=== PATIENT | male | born 1990 | race Caucasian/White ===

== ENCOUNTER 2016-06-30 13:26 | Inpatient (IN) ==
--- NOTE | 2016-06-30 13:54 | Emergency Department Note ---
Disposition Clinical Impression: Homicidal ideation Disposition: Admitted As Inpatient Condition: Good Psych HPI - General Chief Complaint: ED Psychiatric Symptoms Stated Complaint: SI/HI Time Seen by Provider: 06/30/16 13:46 Source: patient Mode of arrival: EMS Limitations: no limitations Nursing Notes Reviewed: Yes Vital Signs Reviewed: Yes - History of Present Illness HPI Narrative: 25-year-old male history of PTSD treated with Celexa who presents to the ER with a chief complaint of homicidal ideation. Patient reports that he was sitting at work today and was thinking about killing his uncle and grandmother because he believes that they had something to do with his mother's . He reports that she overdosed on Tylenol roughly 2 years ago. He states that he thought about driving towards anywhere and had even figured out how to dispose of the bodies. He reports similar ideas in the past but has never tried act on it. He denies suicidal ideation. He reports he feels homicidal to anyone that cuts them off in traffic or does not use their turn signal. Patient reports instead of going to find them today he went to the crisis center and was referred here. He denies any ingestion or attempts to harm himself. Pt complaint: other (Homicidal ideation) Onset (ago): hour(s) Duration: constant History of similar episodes: Yes Improves with: none Worsens with: none Alleged intoxication: No Associated Psychiatric Symptoms: homicidal ideation, racing thoughts Associated symptoms: Reports: denies other symptoms Traumatic symptoms: denies traumatic injury Treatments prior to arrival: none Self harm or harm to others: has plan, admits thoughts of harming others - Related Data Home Medications Medication Instructions Recorded Confirmed Biotin 1 mg PO DAILY 06/30/16 06/30/16 Citalopram Hydrobromide 40 mg PO DAILY 06/30/16 06/30/16 [Citalopram HBr] Dicyclomine [Bentyl] 20 mg PO QID 06/30/16 06/30/16 Prazosin HCl [Minipress] 2 mg PO HS 06/30/16 06/30/16 Allergies Allergy/AdvReac Type Severity Reaction Status Date / Time No Known Allergies Allergy Verified 06/30/16 13:30 All systems ED: reviewed and negative except as stated. Constitutional: Denies: fever Cardiovascular: Reports: chest pain Respiratory: Denies: dyspnea Gastrointestinal: Denies: abdominal pain, nausea, vomiting Psychiatric: Reports: homicidal thoughts. Denies: suicidal thoughts, auditory hallucinations, visual hallucinations Past Medical History - Past Medical History Attestation: Yes The following information was validated with the patient. Source: patient Medical history: Reports: other Surgical history: Reports: non-contributory Psychiatric history: Reports: panic disorder, PTSD - Social History Smoking Status: Never smoker Smokeless Tobacco Status: No Alcohol use: Reports: none Drug use: Reports: none Physical Exam - General Limitations: no limitations General appearance: alert, in no apparent distress - Head Head exam: atraumatic, normocephalic, normal inspection - Eye Eye exam: Present: normal appearance, EOMI - ENT ENT exam: normal exam - Neck Neck exam: Present: normal inspection - Chest Chest inspection: Present: normal inspection, symmetric chest wall rise - Respiratory Respiratory exam: Present: normal lung sounds bilaterally - Cardiovascular Cardiovascular exam: Present: regular rate, normal rhythm, normal heart sounds - Abdominal Exam Abdominal exam: Present: soft, Non-Tender. Absent: tenderness - Extremities Exam Extremities exam: Present: normal inspection, full ROM - Expanded Upper Extremity Exam Shoulder exam: Present: normal inspection, full ROM Arm exam: Present: normal inspection, full ROM Elbow exam: Present: normal inspection, full ROM Forearm/Wrist exam: Present: normal inspection, full ROM Hand exam: Present: normal inspection, full ROM - Expanded Lower Extremity Exam Hip/Pelvis exam: Present: normal inspection, full ROM Upper leg exam: Present: normal inspection, full ROM Knee exam: Present: normal inspection, full ROM Lower leg exam: Present: normal inspection, full ROM Ankle exam: Present: normal inspection, full ROM Foot/toe exam: Present: normal inspection, full ROM - Neurological Exam Neurological exam: Present: alert - Psychiatric Psychiatric exam: Present: normal affect, normal mood - Skin Skin exam: Present: warm, dry, intact, normal color Course Course Narrative: Patient seen and examined. Vital signs reviewed. He was pink slipped by the crisis center today. We will get labs for medical clearance. Vital Signs Temperature 97.5 F L 06/30/16 13:29 Pulse Rate 65 06/30/16 13:29 Respiratory Rate 18 06/30/16 13:29 Blood Pressure 136/88 06/30/16 13:29 O2 Sat by Pulse Oximetry 97 06/30/16 13:29 Temperature 97.4 F L 07/02/16 08:56 Pulse Rate 91 07/02/16 08:56 Respiratory Rate 12 07/02/16 08:56 Blood Pressure 125/81 07/02/16 08:56 O2 Sat by Pulse Oximetry 97 06/30/16 13:29 Oxygen Delivery Oxygen Delivery Room Air Psych - MDM Narrative Medical decision making narrative: 25-year-old male presents to the ER due to homicidal ideation. He reports he has a plan to kill his uncle and grandmother. He denies any suicidal ideation. He denies any auditory or visual hallucinations. Patient was accepted to the psychiatric service for further management. - Lab Data Result diagrams: 06/30/16 14:18 06/30/16 14:18 Lab Results 06/30/16 06/30/16 06/30/16 Range/Units 13:41 13:41 14:18 WBC 9.3 (4.3-11.1) K/mcL RBC 5.27 (4.19-5.50) M/mcL Hgb 15.9 (12.9-16.9) g/dL Hct 45.5 (37.5-50.1) % MCV 86.3 (83.0-100.0) fL MCH 30.2 (28.0-33.3) pg MCHC 34.9 (31.6-35.5) g/dL RDW 11.9 (11.5-14.5) % Plt Count 355 (140-400) K/mcL MPV 8.6 L (9.4-12.4) fL Immature Gran % 0.9 (0-4) % Seg Neutrophils % 69.0 % Lymphocytes % 21.1 % Monocytes % 7.0 % Eosinophils % 1.5 % Basophils % 0.5 % Neutrophils # 6.4 (1.6-8.9) K/mcL Lymphocytes # 2.0 (0.6-4.6) K/mcL Monocytes # 0.7 (0.0-1.3) K/mcL Eosinophils # 0.1 (0.0-0.6) K/mcL Basophils # 0.1 (0.0-0.2) K/mcL Immature Plt Fraction 1.6 (1.1-6.1) % Sodium (136-145) mEq/L Potassium (3.5-4.5) mEq/L Chloride (98-109) mEq/L Carbon Dioxide (19-29) mEq/L BUN (8-26) mg/dL Creatinine (0.72-1.25) mg/dL Est GFR ( Amer) (> 60) Est GFR (Non-Af Amer) (> 60) BUN/Creatinine Ratio (6-26) Glucose (70-99) mg/dL Calculated Osmolality (280-300) Calcium (8.6-10.8) mg/dL TSH (0.350-4.840) mcIU/mL Urine Color Yellow (Yellow) Urine Clarity Clear (Clear) Urine pH 7.5 (5.0-8.0) pH Units Ur Specific [place] 1.017 (1.010-1.025) Urine Protein Negative (Neg-Trace) mg/dL Urine Glucose (UA) Normal (Normal) mg/dL Urine Ketones Negative (Negative) mg/dL Urine Blood Negative (Negative) Urine Nitrite Negative (Negative) Urine Bilirubin Negative (Negative) Urine Urobilinogen Normal (Normal) mg/dL Ur Leukocyte Esterase Negative (Negative) Urine Microscopic RBC 0-3 (0-3) per hpf Ur Squamous Epith Cells Few (None-Few) per lpf Urine Bacteria None Seen (None-Few) per hpf Hyaline Casts None Seen (None-Few) per lpf Salicylates (15-30) mg/dL Urine Opiates Screen Negative (Lfzjyh=469) ng/mL Acetaminophen (10-30) mcg/mL Ur Barbiturates Screen Negative (Svobqo=740) ng/mL Ur Phencyclidine Scrn Negative (Cutoff=25) ng/mL Ur Amphetamines Screen Negative (Lgbjuj=8817) ng/mL U Benzodiazepines Scrn Negative (Yzqzrs=782) ng/mL Urine Cocaine Screen Negative (Cutoff= 300) ng/mL U Marijuana (THC) Screen Negative (Cutoff = 50) ng/mL Ethyl Alcohol (0-10) mg/dL 06/30/16 Range/Units 14:18 WBC (4.3-11.1) K/mcL RBC (4.19-5.50) M/mcL Hgb (12.9-16.9) g/dL Hct (37.5-50.1) % MCV (83.0-100.0) fL MCH (28.0-33.3) pg MCHC (31.6-35.5) g/dL RDW (11.5-14.5) % Plt Count (140-400) K/mcL MPV (9.4-12.4) fL Immature Gran % (0-4) % Seg Neutrophils % % Lymphocytes % % Monocytes % % Eosinophils % % Basophils % % Neutrophils # (1.6-8.9) K/mcL Lymphocytes # (0.6-4.6) K/mcL Monocytes # (0.0-1.3) K/mcL Eosinophils # (0.0-0.6) K/mcL Basophils # (0.0-0.2) K/mcL Immature Plt Fraction (1.1-6.1) % Sodium 140 (136-145) mEq/L Potassium 3.9 (3.5-4.5) mEq/L Chloride 102 (98-109) mEq/L Carbon Dioxide 27 (19-29) mEq/L BUN 12 (8-26) mg/dL Creatinine 1.02 (0.72-1.25) mg/dL Est GFR ( Amer) > 60 (> 60) Est GFR (Non-Af Amer) > 60 (> 60) BUN/Creatinine Ratio 12 (6-26) Glucose 110 H (70-99) mg/dL Calculated Osmolality 290 (280-300) Calcium 10.2 (8.6-10.8) mg/dL TSH 1.253 (0.350-4.840) mcIU/mL Urine Color (Yellow) Urine Clarity (Clear) Urine pH (5.0-8.0) pH Units Ur Specific [place] (1.010-1.025) Urine Protein (Neg-Trace) mg/dL Urine Glucose (UA) (Normal) mg/dL Urine Ketones (Negative) mg/dL Urine Blood (Negative) Urine Nitrite (Negative) Urine Bilirubin (Negative) Urine Urobilinogen (Normal) mg/dL Ur Leukocyte Esterase (Negative) Urine Microscopic RBC (0-3) per hpf Ur Squamous Epith Cells (None-Few) per lpf Urine Bacteria (None-Few) per hpf Hyaline Casts (None-Few) per lpf Salicylates < 5.0 L (15-30) mg/dL Urine Opiates Screen (Dggjda=530) ng/mL Acetaminophen 4.0 L (10-30) mcg/mL Ur Barbiturates Screen (Npcemj=305) ng/mL Ur Phencyclidine Scrn (Cutoff=25) ng/mL Ur Amphetamines Screen (Xsfqma=1328) ng/mL U Benzodiazepines Scrn (Zyqwtb=520) ng/mL Urine Cocaine Screen (Cutoff= 300) ng/mL U Marijuana (THC) Screen (Cutoff = 50) ng/mL Ethyl Alcohol < 10 (0-10) mg/dL - EKG Data EKG attestation: Yes I reviewed and interpreted this EKG. EKG results narrative: EKG demonstrates normal sinus rhythm with a rate of 69 bpm. Normal axis. CO interval 134 QRS duration [address] elevations or depressions. No acute ischemic findings. Psychiatric Medical Clearance - Medical Clearance Checklist Medical History: No Social History Section defined Current Vitals: Last Vital Signs Temp 97.4 F L 07/02/16 08:56 Pulse 91 07/02/16 08:56 Resp 12 07/02/16 08:56 BP 125/81 07/02/16 08:56 Pulse Ox 97 06/30/16 13:29 Abnormal Labs: Abnormal lab results MPV 8.6 fL (9.4-12.4) L 06/30/16 14:18 Glucose 110 mg/dL (70-99) H 06/30/16 14:18 Salicylates < 5.0 mg/dL (15-30) L 06/30/16 14:18 Acetaminophen 4.0 mcg/mL (10-30) L 06/30/16 14:18 Attestation Statement - Attestation Attestation: I personally interviewed and examined this patient and my medical decision- making was reviewed with the ED Resident Physician, Dr. Lauren. I agree with the documented findings, disposition and treatment plan as described except to the extent set forth below. Pt is a 25 yo wm, hx PTSD and SI, who presents with HI. Pt brought by family member to ED. Pt with plan to kill family members. No physical complaints. Agree with PE findings. Pt medically cleared for psych eval. Pt evaluated by 1A , and admitted for further psych eval/tx.
[2016-06-30 14:09] LABS: Bilirubin,Urine Negative (Negative); Blood,Urine Negative (Negative); Color,Urine Yellow (Yellow); Glucose,Urine (UA) Normal (Normal); Ketones,Urine Negative (Negative); Leukocyte Esterase,Urine Negative (Negative); Nitrite,Urine Negative (Negative); PH,Urine 7.5 pH Units (5.0-8.0); Protein,Urine Negative (Neg-Trace); Specific Gravity,Urine 1.017 (1.010-1.025); Urobilinogen,Urine Normal (Normal)
[2016-06-30 14:13] LABS: Bacteria,Urine None Seen per hpf (None-Few); Hyaline Casts,Urine None Seen per lpf (None-Few); RBC,Urine 0-3 per hpf (0-3); Squamous Epithelial Cell,Urine Few per lpf (None-Few)
[2016-06-30 14:14] LABS: Clarity,Urine Clear (Clear)
[2016-06-30 14:25] LABS: Basophils # 0.1 K/mcL (0.0-0.2); Basophils % 0.5 %; Eosinophils # 0.1 K/mcL (0.0-0.6); Eosinophils % 1.5 %; Hematocrit 45.5 % (37.5-50.1); Hemoglobin 15.9 g/dL (12.9-16.9); Immature Granulocytes % 0.9 % (0-4); Immature Platelets 1.6 % (1.1-6.1); Lymphocytes % 21.1 %; Mean Corpuscular HGB Conc 34.9 g/dL (31.6-35.5); Mean Corpuscular Hemoglobin 30.2 pg (28.0-33.3); Mean Corpuscular Volume 86.3 fL (83.0-100.0); Mean Platelet Volume 8.6 fL (9.4-12.4); Monocytes # 0.7 K/mcL (0.0-1.3); Neutrophils # 6.4 K/mcL (1.6-8.9); Platelet Count 355 K/mcL (140-400); Red Blood Count 5.27 M/mcL (4.19-5.50); Red Cell Distribution Width 11.9 % (11.5-14.5)
[2016-06-30 14:42] LABS: BUN/Creatinine Ratio 12 (6-26); Blood Urea Nitrogen 12 mg/dL (8-26); Calcium 10.2 mg/dL (8.6-10.8); Carbon Dioxide 27 mEq/L (19-29); Chloride 102 mEq/L (98-109); Glucose 110 mg/dL (70-99); Osmolality,Calculated 290 (280-300); Potassium 3.9 mEq/L (3.5-4.5); Sodium 140 mEq/L (136-145); eGFR For African Americans > 60 (> 60); eGFR For Non-African Americans > 60 (> 60)
[2016-06-30 14:44] LABS: Ethanol < 10 mg/dL (0-10); Salicylate < 5.0 mg/dL (15-30)
[2016-06-30 14:53] LABS: Amphetamine Screen,Urine Negative ng/mL (Cutoff=1000); Barbiturate Screen,Urine Negative ng/mL (Cutoff=200); Benzodiazepines Screen,Urine Negative ng/mL (Cutoff=200); Cannabinoid Screen,Urine Negative ng/mL (Cutoff = 50); Cocaine Screen,Urine Negative ng/mL (Cutoff= 300); Opiate Screen,Urine Negative ng/mL (Cutoff=300); Phencyclidine Screen,Urine Negative ng/mL (Cutoff=25)
[2016-06-30] MEDS ORDERED: traZODone 50 MG TABLET PO PRN (16:48)
[2016-06-30] MEDS ORDERED: *HR* LORazepam 2 MG/ML VIAL IM PRN (16:48)
[2016-06-30] MEDS ORDERED: MOM Conc 10 ML UD.LIQ PO PRN (16:48)
[2016-06-30] MEDS ORDERED: hydrOXYzine pamoate 25 MG CAPSULE PO PRN (16:48)
[2016-06-30] MEDS ORDERED: Acetaminophen 325 MG TABLET PO PRN (16:48)
[2016-06-30] MEDS ORDERED: Mag Hydrox/Al Hydrox/Simeth 30 ML UDC PO PRN (16:48)
[2016-06-30] MEDS ORDERED: *HR* LORazepam 1 MG TABLET PO PRN (16:48)
[2016-06-30] MEDS ORDERED: Haloperidol Lactate 5 MG/ML VIAL IM PRN (16:48)
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
[2016-07-01] MEDS: ARIPiprazole 10 MG TABLET PO SCH (11:34)
[2016-07-01 12:58] LABS: Thyroid Stimulating Hormone 1.253 mcIU/mL (0.350-4.840)
[2016-07-02] MEDS: ARIPiprazole 10 MG TABLET PO SCH (08:35)
--- NOTE | 2016-07-02 13:18 | Psychiatry Progress Note ---
Date of Encounter: 07/02/16 Time of Encounter: 13:00 Subjective Interval history: Patient is seen for follow-up. Staff report he is compliant with his medication and denied any side effects and did not endorse any suicidal or homicidal ideation. He reported having mid-insomnia but overall he had adequate sleep time. I had long discussion with patient regarding the medication and benefits and side effects and at this time he denies any side effects. 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 We will continue to monitor his response to treatment. Review of Systems Psychiatric: Reports: depression, abnormal sleep pattern, homicidal ideation, auditory hallucinations, visual hallucinations, irritability Objective: Exam Patient orientation: Yes Person, Yes Time, Yes Place Level of alertness: Alert Patient appearance: Appropriate, Well Groomed, Average Behavior: calm, cooperative, impulsive, dramatic Psychomotor activity: Normal Eye contact: Maintains Eye Contact Mood description: Euthymic/stable, Labile Affect description: congruent with mood, labile Speech pattern: Normal rate, Normal rhythm, Normal tone Speech volume: Normal Thought process: Linear, Goal Oriented Thought content: No Suicidal ideation, No Homicidal ideation, No Overt delusions , Yes Preoccupation, Yes Obsessive thoughts Perceptual disturbances: No Auditory hallucinations, Yes Visual hallucinations Judgment: Limited Insight: Partial Results - Vital Signs Vital Signs: Temp Pulse Resp BP Pulse Ox 97.4 F L 91 12 125/81 97 07/02/16 08:56 07/02/16 08:56 07/02/16 08:56 07/02/16 08:56 06/30/16 13:29 Assessment and Plan (1) Homicidal ideation Current visit: Yes Status: Acute Plan: Continue hospitalization, Close observation, Suicide Precautions per unit protocol, Encourage participation in unit milieu, Group Therapy, Monitor sleep, Monitor appetite Risks, benefits, side effects, alternatives discussed w/pt: Yes Patient agreeable to treatment: Yes (2) Bipolar disorder with psychotic features Current visit: Yes Status: Acute Plan: Continue hospitalization, Close observation, Suicide Precautions per unit protocol, Encourage participation in unit milieu, Group Therapy, Monitor sleep, Monitor appetite Risks, benefits, side effects, alternatives discussed w/pt: Yes Patient agreeable to treatment: Yes Consult Discharge Plan - Plan Referrals: Alana Zepeda, [facility] [Primary Care Provider] -
--- NOTE | 2016-07-03 08:51 | Electrocardiograph Report ---
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
[2016-07-03] MEDS: ARIPiprazole 10 MG TABLET PO SCH (08:53)
--- NOTE | 2016-07-03 17:59 | Psychiatry Progress Note ---
Date of Encounter: 07/03/16 Time of Encounter: 17:35 Subjective Interval history: Pt reports that he still has fragmented sleep. He is feeling better but feels Celexa is losing its effect for anxiety. He describes his diagnosis has changed to Bipolar d/o I whic is what his father had. Review of Systems Psychiatric: Reports: depression, abnormal sleep pattern, homicidal ideation, auditory hallucinations, visual hallucinations, irritability Objective: Exam Patient orientation: Yes Person, Yes Time, Yes Place Level of alertness: Alert Patient appearance: Appropriate, Well Groomed, Average Behavior: calm, cooperative, impulsive, dramatic Psychomotor activity: Normal Eye contact: Maintains Eye Contact Mood description: Euthymic/stable, Labile Affect description: congruent with mood, labile Speech pattern: Normal rate, Normal rhythm, Normal tone Speech volume: Normal Thought process: Linear, Goal Oriented Thought content: No Suicidal ideation, No Homicidal ideation, No Overt delusions , Yes Preoccupation, Yes Obsessive thoughts Perceptual disturbances: No Auditory hallucinations, Yes Visual hallucinations Judgment: Limited Insight: Partial Results - Vital Signs Vital Signs: Temp Pulse Resp BP Pulse Ox 97.7 F 84 16 124/79 97 07/03/16 09:00 07/03/16 09:00 07/03/16 09:00 07/03/16 09:00 06/30/16 13:29 Assessment and Plan (1) Bipolar disorder with psychotic features Current visit: Yes Status: Acute Plan: Continue hospitalization, Close observation, Suicide Precautions per unit protocol, Encourage participation in unit milieu, Group Therapy, Monitor sleep, Monitor appetite Risks, benefits, side effects, alternatives discussed w/pt: Yes Patient agreeable to treatment: Yes (2) Homicidal ideation Current visit: Yes Status: Acute Plan: Continue hospitalization, Close observation, Suicide Precautions per unit protocol, Encourage participation in unit milieu, Group Therapy, Monitor sleep, Monitor appetite Risks, benefits, side effects, alternatives discussed w/pt: Yes Patient agreeable to treatment: Yes Consult Discharge Plan - Plan Referrals: [facility] [Outside] - 07/07/16 6:00 pm (The above appointment is with Akiko Negron.) [facility] [Outside] - 09/14/16 2:00 pm (The above appointment is with Meagan Lugo, psychatric prescriber. Please arrive 15 minutes early to complete paperwork. Please bring your insurance card, photo ID and medications in their original bottles. If you do not have insurance, bring proof of income to apply for the sliding fee scale. If you are unable to keep this appointment, 24 hour business notice of cancellation is expected. ) Alana Zepeda CNP [Advanced Practice Nurse] - 07/10/16 1:45 pm (The above apopintment is with Alana Zepeda.)
[2016-07-03] MEDS: OXcarbazepine 150 MG TABLET PO SCH (21:36)
[2016-07-04] MEDS: ARIPiprazole 10 MG TABLET PO SCH (08:39)
[2016-07-04] MEDS: OXcarbazepine 150 MG TABLET PO SCH (08:39)
[2016-07-04 10:43] VITALS: BP 119/76
--- NOTE | 2016-07-04 15:28 | Discharge Summary ---
Date of Encounter: 07/04/16 Time of Encounter: 14:40 Diagnosis - Discharge Diagnosis (1) Bipolar disorder with psychotic features Status: Acute (2) Homicidal ideation Status: Acute Medications - Discharge Medications Biotin 1 mg PO DAILY 06/30/16 [History] Citalopram Hydrobromide [Citalopram HBr] 40 mg PO DAILY 06/30/16 [History] Dicyclomine [Bentyl] 20 mg PO QID 06/30/16 [History] Prazosin HCl [Minipress] 2 mg PO HS 06/30/16 [History] Allergies No Known Allergies Allergy (Verified 06/30/16 13:30) Provider Date of admission: 06/30/16 16:35 Primary care physician: PCP NO Discharging clinician: Jose Alberto Arzola Assessment and Plan - Patient/Caregiver Discharge Instructions Activity: resume usual activities as tolerated Diet: regular diet - Follow up Plan Follow up with: [facility] [Outside] - 07/07/16 6:00 pm (The above appointment is with Akiko Negron.) [facility] [place] [Outside] - 09/14/16 2:00 pm (The above appointment is with Meagan Lugo, psychatric prescriber. Please arrive 15 minutes early to complete paperwork. Please bring your insurance card, photo ID and medications in their original bottles. If you do not have insurance, bring proof of income to apply for the sliding fee scale. If you are unable to keep this appointment, 24 hour business notice of cancellation is expected. ) Alana Zepeda, WASTE DUSTER [Advanced Practice Nurse] - 07/10/16 1:45 pm (The above apopintment is with Alana Zepeda.) Disposition: Home, Self-Care Hospital Course Hospital course: Mr. Moralez is a 25 year old male with h/o PTSD and depression who had become acutely depressed and felt that his grandmother and uncle were against him. He developed an elaborate plan to kill them both and then call the police and turn himself in. Instead he decided to seek help and was hospitalized. Once in the hospitalized pt was very cooperative and had keep interest in learning about his new diagnosis which is Bipolar d/o with psychosis. His father struggled with the same disorder all his life. Pt reponded well to addition of Abilify. Celexa was continued. Given his residual symtoms surinder PTSD from childhood trauma Trileptal was also added at 300 mg bid which may need further dose increase. He had voiced dwindling returns from Celexa and would like to d/c it after Trileptal is fully titrated. Pt's paranoia and mood iimproved significantly during his 4 days stay in the hospital and he participated well in the unit activities and individual counseling.Pt is cleared to return to his work and home. Time spent discussing smoking cessation with patient: 3 to 10 minutes (Pt is not a smoker) Does patient wish to continue nicotine replacement upon disc: No - Time Spent with Patient Total time spent providing and/or coordinating discharge services: Less than 30 minutes Quality - Multiple Antipsychotics Patient discharged on 2 or more antipsychotic medications: No Procedures - Procedures Procedures: Medication Management, Crisis Stabilization, Supportive Therapy, Group Therapy, Psychoeducational Therapy Mental Status Exam - Mental Status Exam Patient orientation: Yes Person, Yes Time, Yes Place Level of alertness: Alert Patient appearance: Appropriate, Well Groomed, Average Behavior: calm, cooperative, impulsive, dramatic Psychomotor activity: Normal Eye contact: Maintains Eye Contact Mood description: Euthymic/stable, Labile Affect description: congruent with mood, labile Speech pattern: Normal rate, Normal rhythm, Normal tone Speech Volume: Normal Thought process: Linear, Goal Oriented Thought Content: No Suicidal ideation, No Homicidal ideation, No Overt delusions , Yes Preoccupation, Yes Obsessive thoughts Perceptual Disturbances: No Auditory hallucinations, Yes Visual hallucinations Judgment: Fair Insight: Partial
== END 2016-07-04 17:15 | disposition home or self-care (01) | DRG 885 ==
LOC: EMEROO 13:26 → 1ANU 16:35
PROVIDERS: ADMIT Psychiatry & Neurology Psychiatry; ATTEND Psychiatry & Neurology Psychiatry

== ENCOUNTER 2017-10-01 15:17 | Inpatient (IN) ==
--- NOTE | 2017-10-01 15:24 | Emergency Department Note ---
Disposition Clinical Impression: Homicidal ideations Disposition: Home, Self-Care Condition: Good Psych HPI - General Chief Complaint: ED Psychiatric Symptoms Stated Complaint: HI Time Seen by Provider: 10/01/17 15:24 Nursing Notes Reviewed: Yes Vital Signs Reviewed: Yes - History of Present Illness HPI Narrative: 27-year-old male presents emergency department with concern for homicidal ideations. Has past medical history of type I bipolar disorder and PTSD. Reports that he wants to kill his grandmother as well as his uncle. States that he thinks that they have had a role in his mother's . Reports that he wants to smother his grandmother with a pillow while she is sleeping. States that he wants to kill his on with a knife. States that he wants to burn the house down afterwards. States that he is not having any auditory or visual hallucinations. - Related Data Home Medications Medication Instructions Recorded Confirmed OXcarbazepine [Trileptal] 600 mg PO BID 05/31/17 10/01/17 Sertraline [Zoloft] 50 mg PO DAILY 05/31/17 10/01/17 Previous Rx's Medication Instructions Recorded ARIPiprazole [Abilify] 10 mg PO DAILY #14 tablet 07/04/16 Dicyclomine [Bentyl] 20 mg PO BID #60 capsule 07/04/16 Prazosin HCl [Minipress] 2 mg PO HS #14 capsule 07/04/16 Allergies Allergy/AdvReac Type Severity Reaction Status Date / Time No Known Allergies Allergy Verified 10/01/17 15:19 All systems ED: reviewed and negative except as stated. Review of Systems: As Per HPI Constitutional: Denies: fever Cardiovascular: Denies: chest pain Respiratory: Denies: cough, dyspnea Gastrointestinal: Denies: abdominal pain, nausea, vomiting Genitourinary: Denies: urgency, dysuria, frequency Musculoskeletal: Denies: back pain Psychiatric: Reports: homicidal thoughts. Denies: depression, suicidal thoughts , auditory hallucinations, visual hallucinations Endocrine: Denies: fatigue Past Medical History - Past Medical History Medical history: Reports: other Surgical history: Reports: non-contributory Psychiatric history: Reports: panic disorder, PTSD - Social History Smoking Status: Never smoker Smokeless Tobacco Status: No Alcohol use: Reports: none Drug use: Reports: none Physical Exam - Head Head exam: normocephalic - Eye Eye exam: Present: EOMI - ENT ENT exam: normal oropharynx - Neck Neck exam: Present: trachea midline - Chest Chest inspection: Present: symmetric chest wall rise - Respiratory Respiratory exam: Present: normal lung sounds bilaterally. Absent: respiratory distress - Cardiovascular Cardiovascular exam: Present: regular rate, normal rhythm, normal heart sounds - Abdominal Exam Abdominal exam: Present: soft, Non-Tender. Absent: distention, guarding, rebound, rigidity - Extremities Exam Extremities exam: Present: normal capillary refill - Back Exam Back exam: Present: full ROM - Neurological Exam Neurological exam: Present: alert, oriented X3, CN II-XII intact - Psychiatric Psychiatric exam: Present: normal affect, normal mood - Skin Skin exam: Present: warm, dry, intact, normal color Course Vital Signs Temperature 98.4 F 10/01/17 15:21 Pulse Rate 93 10/01/17 15:21 Respiratory Rate 18 10/01/17 15:21 Blood Pressure 134/86 10/01/17 15:21 O2 Sat by Pulse Oximetry 96 10/01/17 15:21 Temperature 98.4 F 10/01/17 15:21 Pulse Rate 93 10/01/17 15:32 Respiratory Rate 18 10/01/17 15:32 Blood Pressure 134/86 10/01/17 15:32 O2 Sat by Pulse Oximetry 96 10/01/17 15:32 Oxygen Delivery Oxygen Delivery Room Air Psych - MDM Narrative Medical decision making narrative: 27-year-old male presents emergency department with concern for homicidal ideations. Patient is a plan in place. [place] slip has been placed. We are obtaining medical clearance at this time. Patient not in any acute distress and hemodynamically stable. Patient's creatinine function was normal. No leukocytosis. No Tylenol or salicylates detected. No ethanol detected. Urine drug screen is normal. Patient was cleared medically. He was evaluated by psychiatric team. Patient accepted by the psychiatry team for admission. Patient not in any acute distress at time of admission. Vital Signs Temperature 98.4 F 10/01/17 15:21 Pulse Rate 93 10/01/17 15:21 Respiratory Rate 18 10/01/17 15:21 Blood Pressure 134/86 10/01/17 15:21 O2 Sat by Pulse Oximetry 96 10/01/17 15:21 Temperature 98.4 F 10/01/17 15:21 Pulse Rate 93 10/01/17 15:32 Respiratory Rate 18 10/01/17 15:32 Blood Pressure 134/86 10/01/17 15:32 O2 Sat by Pulse Oximetry 96 10/01/17 15:32 Oxygen Delivery Oxygen Delivery Room Air - Lab Data Result diagrams: 10/01/17 15:46 10/01/17 15:46 Lab Results 10/01/17 10/01/17 10/01/17 Range/Units 15:32 15:37 15:46 WBC 7.9 (4.3-11.1) K/mcL RBC 5.46 (4.19-5.50) M/mcL Hgb 17.0 H (12.9-16.9) g/dL Hct 46.9 (37.5-50.1) % MCV 85.9 (83.0-100.0) fL MCH 31.1 (28.0-33.3) pg MCHC 36.2 H (31.6-35.5) g/dL RDW 11.7 (11.5-14.5) % Plt Count 268 (140-400) K/mcL MPV 9.0 L (9.4-12.4) fL Immature Gran % 0.5 (0-4) % Seg Neutrophils % 74.2 % Lymphocytes % 17.2 % Monocytes % 6.7 % Eosinophils % 0.9 % Basophils % 0.5 % Neutrophils # 5.9 (1.6-8.9) K/mcL Lymphocytes # 1.4 (0.6-4.6) K/mcL Monocytes # 0.5 (0.0-1.3) K/mcL Eosinophils # 0.1 (0.0-0.6) K/mcL Basophils # 0.0 (0.0-0.2) K/mcL Sodium (136-145) mEq/L Potassium (3.5-5.1) mEq/L Chloride (98-107) mEq/L Carbon Dioxide (23-29) mEq/L BUN (6-20) mg/dL Creatinine (0.70-1.30) mg/dL Est GFR ( Amer) (> 60) Est GFR (Non-Af Amer) (> 60) BUN/Creatinine Ratio (6-26) Glucose (70-105) mg/dL Calculated Osmolality (280-300) Calcium (8.6-10.3) mg/dL Urine Color Yellow (Yellow) Urine Clarity Clear (Clear) Urine pH 6.5 (5.0-8.0) pH Units Ur Specific [place] 1.023 (1.010-1.025) Urine Protein Negative (Neg-Trace) mg/dL Urine Glucose (UA) Normal (Normal) mg/dL Urine Ketones Negative (Negative) mg/dL Urine Blood Negative (Negative) Urine Nitrite Negative (Negative) Urine Bilirubin Negative (Negative) Urine Urobilinogen Normal (Normal) mg/dL Ur Leukocyte Esterase Negative (Negative) Salicylates (15.0-30.0) mg/dL Urine Opiates Screen Negative (Znkrjh=908) ng/mL Acetaminophen (10-20) mcg/mL Ur Barbiturates Screen Negative (Okezmh=878) ng/mL Ur Phencyclidine Scrn Negative (Cutoff=25) ng/mL Ur Amphetamines Screen Negative (Mmdkls=2461) ng/mL U Benzodiazepines Scrn Negative (Keuenn=109) ng/mL Urine Cocaine Screen Negative (Cutoff= 300) ng/mL U Marijuana (THC) Screen Negative (Cutoff = 50) ng/mL Ur Drug Screen Interp See Below Ethyl Alcohol (Less than 10) mg/dL 10/01/17 Range/Units 15:46 WBC (4.3-11.1) K/mcL RBC (4.19-5.50) M/mcL Hgb (12.9-16.9) g/dL Hct (37.5-50.1) % MCV (83.0-100.0) fL MCH (28.0-33.3) pg MCHC (31.6-35.5) g/dL RDW (11.5-14.5) % Plt Count (140-400) K/mcL MPV (9.4-12.4) fL Immature Gran % (0-4) % Seg Neutrophils % % Lymphocytes % % Monocytes % % Eosinophils % % Basophils % % Neutrophils # (1.6-8.9) K/mcL Lymphocytes # (0.6-4.6) K/mcL Monocytes # (0.0-1.3) K/mcL Eosinophils # (0.0-0.6) K/mcL Basophils # (0.0-0.2) K/mcL Sodium 139 (136-145) mEq/L Potassium 3.8 (3.5-5.1) mEq/L Chloride 104 (98-107) mEq/L Carbon Dioxide 28 (23-29) mEq/L BUN 10 (6-20) mg/dL Creatinine 1.01 (0.70-1.30) mg/dL Est GFR ( Amer) > 60 (> 60) Est GFR (Non-Af Amer) > 60 (> 60) BUN/Creatinine Ratio 10 (6-26) Glucose 104 (70-105) mg/dL Calculated Osmolality 287 (280-300) Calcium 9.9 (8.6-10.3) mg/dL Urine Color (Yellow) Urine Clarity (Clear) Urine pH (5.0-8.0) pH Units Ur Specific [place] (1.010-1.025) Urine Protein (Neg-Trace) mg/dL Urine Glucose (UA) (Normal) mg/dL Urine Ketones (Negative) mg/dL Urine Blood (Negative) Urine Nitrite (Negative) Urine Bilirubin (Negative) Urine Urobilinogen (Normal) mg/dL Ur Leukocyte Esterase (Negative) Salicylates < 2.5 L (15.0-30.0) mg/dL Urine Opiates Screen (Piiwqy=782) ng/mL Acetaminophen < 10 L (10-20) mcg/mL Ur Barbiturates Screen (Bbdjhb=967) ng/mL Ur Phencyclidine Scrn (Cutoff=25) ng/mL Ur Amphetamines Screen (Kcrlyz=5768) ng/mL U Benzodiazepines Scrn (Zgccoz=920) ng/mL Urine Cocaine Screen (Cutoff= 300) ng/mL U Marijuana (THC) Screen (Cutoff = 50) ng/mL Ur Drug Screen Interp Ethyl Alcohol < 10 (Less than 10) mg/dL Psychiatric Medical Clearance - Medical Clearance Checklist Medical History: No Social History Section defined Current Vitals: Last Vital Signs Temp 98.4 F 10/01/17 15:21 Pulse 93 10/01/17 15:32 Resp 18 10/01/17 15:32 BP 134/86 10/01/17 15:32 Pulse Ox 96 10/01/17 15:32 Psychiatric Lab Panel: Drug Levels and Toxicity 10/01/17 10/01/17 15:32 15:46 Urine Opiates Screen Negative Acetaminophen < 10 L Ur Barbiturates Screen Negative Ur Phencyclidine Scrn Negative Ur Amphetamines Screen Negative U Benzodiazepines Scrn Negative Urine Cocaine Screen Negative U Marijuana (THC) Screen Negative Ethyl Alcohol < 10 Abnormal Labs: Abnormal lab results Hgb 17.0 g/dL (12.9-16.9) H 10/01/17 15:46 MCHC 36.2 g/dL (31.6-35.5) H 10/01/17 15:46 MPV 9.0 fL (9.4-12.4) L 10/01/17 15:46 Salicylates < 2.5 mg/dL (15.0-30.0) L 10/01/17 15:46 Acetaminophen < 10 mcg/mL (10-20) L 10/01/17 15:46 Statement of Medical Clearance: I have evaluated the patient, reviewed diagnostic information, and certify that the patient's medical condition is sufficiently stable that transfer to the psychiatric unit does not pose a significant risk of deterioration.
--- NOTE | 2017-10-01 15:26 | Emergency Department Note ---
Disposition Clinical Impression: Homicidal ideations Disposition: Home, Self-Care Condition: Good General Adult HPI - General Chief complaint: ED Psychiatric Symptoms Stated complaint: HI Time Seen by Provider: 10/01/17 15:24 - Related Data Home Medications Medication Instructions Recorded Confirmed OXcarbazepine [Trileptal] 600 mg PO BID 05/31/17 10/01/17 Sertraline [Zoloft] 50 mg PO DAILY 05/31/17 10/01/17 Previous Rx's Medication Instructions Recorded ARIPiprazole [Abilify] 10 mg PO DAILY #14 tablet 07/04/16 Dicyclomine [Bentyl] 20 mg PO BID #60 capsule 07/04/16 Prazosin HCl [Minipress] 2 mg PO HS #14 capsule 07/04/16 Allergies Allergy/AdvReac Type Severity Reaction Status Date / Time No Known Allergies Allergy Verified 10/01/17 15:19 Past Medical History - Past Medical History Medical history: Reports: other Surgical history: Reports: non-contributory Psychiatric history: Reports: panic disorder, PTSD - Social History Smoking Status: Never smoker Smokeless Tobacco Status: No Alcohol use: Reports: none Drug use: Reports: none Course Vital Signs Temperature 98.4 F 10/01/17 15:21 Pulse Rate 93 10/01/17 15:21 Respiratory Rate 18 10/01/17 15:21 Blood Pressure 134/86 10/01/17 15:21 O2 Sat by Pulse Oximetry 96 10/01/17 15:21 Temperature 98.4 F 10/01/17 15:21 Pulse Rate 93 10/01/17 15:32 Respiratory Rate 18 10/01/17 15:32 Blood Pressure 134/86 10/01/17 15:32 O2 Sat by Pulse Oximetry 96 10/01/17 15:32 Oxygen Delivery Oxygen Delivery Room Air Medical Decision Making - Lab Data Result diagrams: 10/01/17 15:46 10/01/17 15:46 Lab Results 10/01/17 10/01/17 10/01/17 Range/Units 15:32 15:37 15:46 WBC 7.9 (4.3-11.1) K/mcL RBC 5.46 (4.19-5.50) M/mcL Hgb 17.0 H (12.9-16.9) g/dL Hct 46.9 (37.5-50.1) % MCV 85.9 (83.0-100.0) fL MCH 31.1 (28.0-33.3) pg MCHC 36.2 H (31.6-35.5) g/dL RDW 11.7 (11.5-14.5) % Plt Count 268 (140-400) K/mcL MPV 9.0 L (9.4-12.4) fL Immature Gran % 0.5 (0-4) % Seg Neutrophils % 74.2 % Lymphocytes % 17.2 % Monocytes % 6.7 % Eosinophils % 0.9 % Basophils % 0.5 % Neutrophils # 5.9 (1.6-8.9) K/mcL Lymphocytes # 1.4 (0.6-4.6) K/mcL Monocytes # 0.5 (0.0-1.3) K/mcL Eosinophils # 0.1 (0.0-0.6) K/mcL Basophils # 0.0 (0.0-0.2) K/mcL Sodium (136-145) mEq/L Potassium (3.5-5.1) mEq/L Chloride (98-107) mEq/L Carbon Dioxide (23-29) mEq/L BUN (6-20) mg/dL Creatinine (0.70-1.30) mg/dL Est GFR ( Amer) (> 60) Est GFR (Non-Af Amer) (> 60) BUN/Creatinine Ratio (6-26) Glucose (70-105) mg/dL Calculated Osmolality (280-300) Calcium (8.6-10.3) mg/dL Urine Color Yellow (Yellow) Urine Clarity Clear (Clear) Urine pH 6.5 (5.0-8.0) pH Units Ur Specific [place] 1.023 (1.010-1.025) Urine Protein Negative (Neg-Trace) mg/dL Urine Glucose (UA) Normal (Normal) mg/dL Urine Ketones Negative (Negative) mg/dL Urine Blood Negative (Negative) Urine Nitrite Negative (Negative) Urine Bilirubin Negative (Negative) Urine Urobilinogen Normal (Normal) mg/dL Ur Leukocyte Esterase Negative (Negative) Salicylates (15.0-30.0) mg/dL Urine Opiates Screen Negative (Ozuxje=607) ng/mL Acetaminophen (10-20) mcg/mL Ur Barbiturates Screen Negative (Gnkqmw=628) ng/mL Ur Phencyclidine Scrn Negative (Cutoff=25) ng/mL Ur Amphetamines Screen Negative (Vgbuko=7074) ng/mL U Benzodiazepines Scrn Negative (Cajdxz=496) ng/mL Urine Cocaine Screen Negative (Cutoff= 300) ng/mL U Marijuana (THC) Screen Negative (Cutoff = 50) ng/mL Ur Drug Screen Interp See Below Ethyl Alcohol (Less than 10) mg/dL 10/01/17 Range/Units 15:46 WBC (4.3-11.1) K/mcL RBC (4.19-5.50) M/mcL Hgb (12.9-16.9) g/dL Hct (37.5-50.1) % MCV (83.0-100.0) fL MCH (28.0-33.3) pg MCHC (31.6-35.5) g/dL RDW (11.5-14.5) % Plt Count (140-400) K/mcL MPV (9.4-12.4) fL Immature Gran % (0-4) % Seg Neutrophils % % Lymphocytes % % Monocytes % % Eosinophils % % Basophils % % Neutrophils # (1.6-8.9) K/mcL Lymphocytes # (0.6-4.6) K/mcL Monocytes # (0.0-1.3) K/mcL Eosinophils # (0.0-0.6) K/mcL Basophils # (0.0-0.2) K/mcL Sodium 139 (136-145) mEq/L Potassium 3.8 (3.5-5.1) mEq/L Chloride 104 (98-107) mEq/L Carbon Dioxide 28 (23-29) mEq/L BUN 10 (6-20) mg/dL Creatinine 1.01 (0.70-1.30) mg/dL Est GFR ( Amer) > 60 (> 60) Est GFR (Non-Af Amer) > 60 (> 60) BUN/Creatinine Ratio 10 (6-26) Glucose 104 (70-105) mg/dL Calculated Osmolality 287 (280-300) Calcium 9.9 (8.6-10.3) mg/dL Urine Color (Yellow) Urine Clarity (Clear) Urine pH (5.0-8.0) pH Units Ur Specific [place] (1.010-1.025) Urine Protein (Neg-Trace) mg/dL Urine Glucose (UA) (Normal) mg/dL Urine Ketones (Negative) mg/dL Urine Blood (Negative) Urine Nitrite (Negative) Urine Bilirubin (Negative) Urine Urobilinogen (Normal) mg/dL Ur Leukocyte Esterase (Negative) Salicylates < 2.5 L (15.0-30.0) mg/dL Urine Opiates Screen (Lrjpzk=800) ng/mL Acetaminophen < 10 L (10-20) mcg/mL Ur Barbiturates Screen (Tzkygq=162) ng/mL Ur Phencyclidine Scrn (Cutoff=25) ng/mL Ur Amphetamines Screen (Xzfyln=4510) ng/mL U Benzodiazepines Scrn (Zteone=324) ng/mL Urine Cocaine Screen (Cutoff= 300) ng/mL U Marijuana (THC) Screen (Cutoff = 50) ng/mL Ur Drug Screen Interp Ethyl Alcohol < 10 (Less than 10) mg/dL Attestation Statement - Attestation Attestation: I examined this patient and my medical decision-making was reviewed with the Resident Physician. I agree with the documented findings, disposition and treatment plan as described except to the extent set forth below. Face to face time provided Patient arrives by EMS. Appears in no acute distress. Evaluated in conjunction with Dr. Vanessa
[2017-10-01 15:53] LABS: Bilirubin,Urine Negative (Negative); Blood,Urine Negative (Negative); Clarity,Urine Clear (Clear); Color,Urine Yellow (Yellow); Glucose,Urine (UA) Normal (Normal); Ketones,Urine Negative (Negative); Leukocyte Esterase,Urine Negative (Negative); Nitrite,Urine Negative (Negative); PH,Urine 6.5 pH Units (5.0-8.0); Protein,Urine Negative (Neg-Trace); Specific Gravity,Urine 1.023 (1.010-1.025); Urobilinogen,Urine Normal (Normal)
[2017-10-01 16:05] LABS: Basophils % 0.5 %; Eosinophils # 0.1 K/mcL (0.0-0.6); Eosinophils % 0.9 %; Hematocrit 46.9 % (37.5-50.1); Immature Granulocytes % 0.5 % (0-4); Lymphocytes # 1.4 K/mcL (0.6-4.6); Lymphocytes % 17.2 %; Mean Corpuscular HGB Conc 36.2 g/dL (31.6-35.5); Mean Corpuscular Hemoglobin 31.1 pg (28.0-33.3); Mean Corpuscular Volume 85.9 fL (83.0-100.0); Monocytes # 0.5 K/mcL (0.0-1.3); Monocytes % 6.7 %; Neutrophils # 5.9 K/mcL (1.6-8.9); Platelet Count 268 K/mcL (140-400); Red Blood Count 5.46 M/mcL (4.19-5.50); Red Cell Distribution Width 11.7 % (11.5-14.5); Segmented Neutrophils % 74.2 %
[2017-10-01 16:11] LABS: Amphetamine Screen,Urine Negative ng/mL (Cutoff=1000); Barbiturate Screen,Urine Negative ng/mL (Cutoff=200); Benzodiazepines Screen,Urine Negative ng/mL (Cutoff=200); Cannabinoid Screen,Urine Negative ng/mL (Cutoff = 50); Cocaine Screen,Urine Negative ng/mL (Cutoff= 300); Opiate Screen,Urine Negative ng/mL (Cutoff=300); Phencyclidine Screen,Urine Negative ng/mL (Cutoff=25)
[2017-10-01 16:17] LABS: Acetaminophen < 10 mcg/mL (10-20); BUN/Creatinine Ratio 10 (6-26); Blood Urea Nitrogen 10 mg/dL (6-20); Calcium 9.9 mg/dL (8.6-10.3); Carbon Dioxide 28 mEq/L (23-29); Chloride 104 mEq/L (98-107); Ethanol < 10 mg/dL (Less than 10); Glucose 104 mg/dL (70-105); Osmolality,Calculated 287 (280-300); Potassium 3.8 mEq/L (3.5-5.1); Salicylate < 2.5 mg/dL (15.0-30.0); Sodium 139 mEq/L (136-145); eGFR For African Americans > 60 (> 60); eGFR For Non-African Americans > 60 (> 60)
[2017-10-01] MEDS ORDERED: *HR* LORazepam 2 MG/ML VIAL IM PRN (19:42)
[2017-10-01] MEDS ORDERED: MOM Conc 10 ML UD.LIQ PO PRN (19:42)
[2017-10-01] MEDS ORDERED: Acetaminophen 325 MG TABLET PO PRN (19:42)
[2017-10-01] MEDS ORDERED: Mag Hydrox/Al Hydrox/Simeth 30 ML UDC PO PRN (19:42)
[2017-10-01] MEDS ORDERED: hydrOXYzine pamoate 25 MG CAPSULE PO PRN (19:42)
[2017-10-01] MEDS ORDERED: Haloperidol Lactate 5 MG/ML VIAL IM PRN (19:42)
[2017-10-01] MEDS: traZODone 50 MG TABLET PO PRN (22:40)
[2017-10-01] MEDS: OXcarbazepine 150 MG TABLET PO SCH (22:40)
[2017-10-02] MEDS: ARIPiprazole 10 MG TABLET PO SCH (08:55)
[2017-10-02] MEDS: OXcarbazepine 150 MG TABLET PO SCH ×2 (08:55→20:55)
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
[2017-10-02] MEDS: *HR* LORazepam 1 MG TABLET PO PRN (22:37)
[2017-10-03] MEDS: OXcarbazepine 150 MG TABLET PO SCH ×2 (08:52→21:36)
[2017-10-03] MEDS: ARIPiprazole 10 MG TABLET PO SCH (08:52)
--- NOTE | 2017-10-03 10:40 | Psychiatry Progress Note ---
Date of Encounter: 10/03/17 Time of Encounter: 08:30 Subjective Interval history: Patient's a 27-year-old white male. Chief complaint I started having thoughts about killing my roommate. I thought about folding the sheets because a new I might do something if I rolled sheets. History of present illness:. The patient was sleeping last night and had trouble falling to sleep he began to think about things and started to think about violent or horrific images he came into his mind's eye. These included how to kill his roommate. Even thought about the steps necessary to avoid contraction. He went to the nurse and said that he was uncomfortable and reported these disturbing obsessions. He was placed in the quiet room but in an effort to combat this he punched the floor 7 or 8 times he used his right hand. He has a history of boxer fracture of the fifth metacarpal. The patient was able to tolerate the increase in prazosin and is currently being watched. The patient noted no side effects and is to increase the sertraline today. Patient agrees to a x-ray today an increase in the medicines. The patient was able to talk to his on the phone and cooperate in the valera milieu Review of Systems Psychiatric: Reports: depression, anxiety, abnormal sleep pattern, homicidal ideation, irritability, mood swings Results - Vital Signs Vital Signs: Temp Pulse Resp BP Pulse Ox 98.1 F 85 16 131/82 96 10/03/17 09:00 10/03/17 09:00 10/03/17 09:00 10/03/17 09:00 10/01/17 15:32 Assessment and Plan (1) Chronic post-traumatic stress disorder Current visit: Yes Status: Acute Plan: Continue hospitalization, Close observation, Suicide Precautions per unit protocol, Encourage participation in unit milieu, Group Therapy Risks, benefits, side effects, alternatives discussed w/pt: Yes Patient agreeable to treatment: Yes (2) Bipolar disorder, current episode manic without psychotic features, severe Current visit: Yes Status: Acute Plan: Monitor appetite, Secure weapons Risks, benefits, side effects, alternatives discussed w/pt: Yes Patient agreeable to treatment: Yes (3) Parasomnia of non-organic origin Current visit: Yes Status: Chronic Plan: Group Therapy, Monitor sleep, Monitor appetite, Secure weapons, Family/ Supportive other meeting Risks, benefits, side effects, alternatives discussed w/pt: Yes Patient agreeable to treatment: Yes (4) Homicidal ideation Current visit: Yes Status: Acute Plan: Close observation, Secure weapons Risks, benefits, side effects, alternatives discussed w/pt: Yes Patient agreeable to treatment: Yes Consult Discharge Plan - Plan Referrals: [facility] [Outside] - 10/19/17 10:20 am (The above appointment is with Dr. Singh, your psychiatric provider. Please bring photo ID and insurance card. Please call 24 hours before your appointment for cancellations. ) [facility] [Outside] - 10/05/17 11:00 am (The above appointment is with Akiko Negron for mental health counseling. Please bring photo ID and insurance card.) Psychiatry Exam - Constitutional Vitals: Temp Pulse Resp BP Pulse Ox 98.1 F 85 16 131/82 96 10/03/17 09:00 10/03/17 09:00 10/03/17 09:00 10/03/17 09:00 10/01/17 15:32 General appearance: age & developmentally appropriate, well-groomed, well- nourished - Musculoskeletal Gait: normal Station: stiff Strength & Tone: normal for patient - Psychiatric Patient Orientation: Yes Person, Yes Time, Yes Place Level of alertness: Alert Behavior: restless Psychomotor activity: Increased Eye Contact: Maintains Eye Contact Mood Description: Angry, Anxious Affect description: full range Speech Volume: Normal Speech pattern: normal rate Language & Vocabulary: consistent with education Thought Process: Intact Thought Content: Yes Preoccupation, Yes Obsessive thoughts Perceptual Disturbances: No Auditory hallucinations, No Visual hallucinations Attention Span Ability: Capable of Focused Attention Memory Description: Grossly Intact Patient Reliability: Reliable Historian Fund of knowledge: Yes abstraction ability, Yes aware of current events Intelligence Estimate: Above Avergage Judgment: Fair Insight: Partial
[2017-10-04] MEDS: ARIPiprazole 10 MG TABLET PO SCH (09:33)
[2017-10-04] MEDS: OXcarbazepine 150 MG TABLET PO SCH ×2 (09:34→21:40)
--- NOTE | 2017-10-04 12:16 | Psychiatry Progress Note ---
Date of Encounter: 10/04/17 Time of Encounter: 12:00 Subjective Interval history: The patient is a 27-year-old white male. Chief complaint: I am feeling better and I slept better. Problem #1. PTSD. The patient's treatment has been primarily directed at PTSD symptoms. These include obsessions and compulsions intrusive thoughts and actions. The patient has had an increase in prazosin 8 mg and an increase in sertraline to 150 mg per day beginning today. The patient slept 8 hours last night and did not report any parasomnia or other behavior. Today he is tolerating the medicine without difficulty nausea diarrhea. Overall he feels calmer feels that this may help. Problem #2 bipolar disorder severe without psychosis manic. The patient has remained on Trileptal. This medicines been well tolerated and helps with anger and irritability. He is been no activation of isabel with the Zoloft as time. The patient is also on Abilify which is FDA approved for bipolar disorder. He has some movements of the fingers and the Jong that appear to be tremor and not increased by activation. These are risk factor but do not represent tardive dyskinesia. Nonetheless the risk of tardive dyskinesia with Abilify was discussed. Efforts to mitigate this risk were also discussed. Problem #3 homicidal ideation. The patient has had thoughts about killing his uncle and grandmother. But now he recognizes that this is not an imminent event or something that he is going to direct way. Rather he is willing to discuss this in therapy and to work within the confines the therapeutic relationship. He is aware of the need for the duty to protect while under [place] law.. The components of the law were discussed with him. Problem #4 parasomnia. The patient has been told that he he has parasomnia based on his history he does unusual things at night. This may be of concern to his bed partner and may be concerning as expecting a child. Some of the important things to consider are where the child will sleep with the patient will do well in the mother's breast feeding at night and how the medicine effects and. He is currently tolerating the prazosin may develop further tolerance he can test to see how he will wake up under different scenarios. The patient has improvement in parasomnia and sleep with prazosin. I told him he should avoid trazodone as the 2 medicines can be associated with priapism. I discussed priapism in detail and told him that he may need emergency treatment if these symptoms occur. As point appears prazosin as it is best dose but adjustment of the medicine up or down may be necessary depending on symptoms and sleep Review of Systems Constitutional: Denies: fever, chills, weakness, weight change Eyes: Denies: eye pain, vision change Ears, Nose, Throat: Denies: ear pain, throat pain, dental pain, hearing loss, congestion Cardiovascular: Denies: chest pain, palpitations, dyspnea on exertion Respiratory: Denies: cough, dyspnea, wheezes Gastrointestinal: Denies: abdominal pain, nausea, vomiting, diarrhea, constipation Musculoskeletal: Denies: joint swelling, joint pain Neurological: Reports: other Psychiatric: Reports: depression, anxiety, abnormal sleep pattern, homicidal ideation, mood swings Results - Vital Signs Vital Signs: Temp Pulse Resp BP Pulse Ox 97.8 F 91 16 119/74 96 10/04/17 09:00 10/04/17 09:00 10/04/17 09:00 10/04/17 09:00 10/01/17 15:32 Assessment and Plan (1) Chronic post-traumatic stress disorder Current visit: Yes Status: Acute Plan: Continue hospitalization, Close observation, Suicide Precautions per unit protocol, Group Therapy, Monitor sleep Risks, benefits, side effects, alternatives discussed w/pt: Yes Patient agreeable to treatment: Yes (2) Bipolar disorder, current episode manic without psychotic features, severe Current visit: Yes Status: Acute Plan: Suicide Precautions per unit protocol, Encourage participation in unit milieu, Monitor appetite, Family/Supportive other meeting Risks, benefits, side effects, alternatives discussed w/pt: Yes Patient agreeable to treatment : Yes (3) Parasomnia of non-organic origin Current visit: Yes Status: Chronic Plan: Monitor sleep Risks, benefits, side effects, alternatives discussed w/pt : Yes Patient agreeable to treatment: Yes (4) Homicidal ideation Current visit: Yes Status: Acute Plan: Secure weapons Risks, benefits, side effects, alternatives discussed w/ pt: Yes Patient agreeable to treatment: Yes Consult Discharge Plan - Plan Referrals: [facility] [Outside] - 10/19/17 10:20 am (The above appointment is with Dr. Singh, your psychiatric provider. Please bring photo ID and insurance card. Please call 24 hours before your appointment for cancellations. ) [facility] [Outside] - 10/05/17 11:00 am (The above appointment is with Akiko Negron for mental health counseling. Please bring photo ID and insurance card.) Psychiatry Exam - Constitutional Vitals: Temp Pulse Resp BP Pulse Ox 97.8 F 91 16 119/74 96 10/04/17 09:00 10/04/17 09:00 10/04/17 09:00 10/04/17 09:00 10/01/17 15:32 General appearance: age & developmentally appropriate, well-groomed, well- nourished - Musculoskeletal Gait: brisk Station: stiff Strength & Tone: normal for patient - Psychiatric Patient Orientation: Yes Person, Yes Place Level of alertness: Alert Behavior: calm Psychomotor activity: Increased Eye Contact: Maintains Eye Contact Mood Description: Anxious Affect description: congruent with mood Speech Volume: Normal Speech pattern: normal rate Language & Vocabulary: consistent with education Thought Process: Intact Thought Content: Yes Homicidal ideation, Yes Obsessive thoughts Perceptual Disturbances: No Auditory hallucinations, No Visual hallucinations Attention Span Ability: Capable of Focused Attention Memory Description: Grossly Intact Patient Reliability: Reliable Historian Fund of knowledge: Yes abstraction ability, Yes aware of current events Intelligence Estimate: Above Avergage Judgment: Fair Insight: Partial
[2017-10-04] MEDS: traZODone 50 MG TABLET PO PRN (22:35)
[2017-10-05] MEDS: *HR* LORazepam 1 MG TABLET PO PRN (00:15)
[2017-10-05 08:26] VITALS: BP 115/80
[2017-10-05] MEDS: ARIPiprazole 10 MG TABLET PO SCH (08:52)
[2017-10-05] MEDS: OXcarbazepine 150 MG TABLET PO SCH (08:52)
--- NOTE | 2017-10-05 09:49 | Discharge Summary ---
Date of Encounter: 10/05/17 Time of Encounter: 09:45 Diagnosis - Discharge Diagnosis (1) Chronic post-traumatic stress disorder Priority: Primary Status: Acute (2) Bipolar disorder, current episode manic without psychotic features, severe Priority: Secondary Status: Acute (3) Parasomnia of non-organic origin Priority: Secondary Status: Chronic (4) Homicidal ideation Priority: Secondary Status: Resolved Medications - Discharge Medications Prescriptions: Prazosin [Minipress] 8 mg PO HS 14 Days #14 capsule Sertraline [Zoloft] 50 mg PO DAILY 28 Days #14 tablet ARIPiprazole [Abilify] 10 mg PO DAILY #14 tablet 07/04/16 [Rx] Dicyclomine [Bentyl] 20 mg PO BID #60 capsule 07/04/16 [Rx] OXcarbazepine [Trileptal] 600 mg PO BID 05/31/17 [History] Prazosin [Minipress] 8 mg PO HS 14 Days #14 capsule 10/05/17 [Rx] Sertraline [Zoloft] 50 mg PO DAILY 28 Days #14 tablet 10/05/17 [Rx] 3 Allergy/AdvReac Type Severity Reaction Status Date / Time No Known Allergies Allergy Verified 10/01/17 15:19 Provider Date of admission: 10/01/17 18:50 Primary care physician: PCP NONE Discharging clinician: Callum Gerber Psychiatry Exam - Constitutional Vitals: Temp Pulse Resp BP Pulse Ox 97.6 F 85 20 115/80 96 10/05/17 08:24 10/05/17 08:24 10/05/17 08:24 10/05/17 08:24 10/01/17 15:32 General appearance: age & developmentally appropriate, well-groomed, well- nourished - Musculoskeletal Gait: normal Station: relaxed Strength & Tone: normal for patient - Psychiatric Patient Orientation: Yes Person, Yes Time, Yes Place Level of alertness: Alert Behavior: calm, cooperative Psychomotor activity: Normal Eye Contact: Maintains Eye Contact Mood Description: Euthymic/stable Affect description: congruent with mood, full range Speech Volume: Normal Speech pattern: normal rate, normal rhythm, normal tone, fluent, spontaneous Language & Vocabulary: consistent with education Thought Process: Linear, Goal Oriented Thought Content: No Suicidal ideation, No Homicidal ideation, No Overt delusions , Yes Obsessive thoughts Perceptual Disturbances: No Auditory hallucinations, No Visual hallucinations Attention Span Ability: Capable of Focused Attention Memory Description: Grossly Intact Patient Reliability: Reliable Historian Fund of knowledge: Yes abstraction ability, Yes aware of current events Intelligence Estimate: Average Judgment: Fair Insight: Partial Hospital Course Hospital course: Mr. Moralez is a 27 year old male The patient was admitted. The patient had PTSD and bipolar disorder. While the patient had episodes of elevated mood and energy and involvement in a variety of activities the patient's PTSD plate strongly into the presence of homicidal ideation. The patient had too intended persons that he would harm. This occurred after disputed work. The patient agreed to stay in the hospital and worked on some of the issues underlying this. The patient also had a strong history suggestive of a parasomnia. For this reason the sertraline was increased and the prazosin was increased. The patient tolerated the increases and did not have significant side effects he had improved sleep. On 2 other nights of the hospitalization including night before discharge the patient had homicidal ideation with intrusive obsessive images regarding his roommate. The patient was placed in unfamiliar environment and this patient had isabel so that this may be associated with the thinking nonetheless patient did not harbor homicidal ideation during the daytime and at the time of discharge. Furthermore the patient was able to discuss any homicidal ideation or other symptoms including violent and obsessive imagery in the context of therapy. Safety in the home in bedroom with parasomnia was also discussed. The patient' s has locked up the firearms and the patient will not have access to the tejada. The patient did not evidence home suicidal ideation at the time of discharge or during the hospital stay. Hand off was made to his outpatient provider. The patient would like to return to work 10/08/2017 - Time Spent with Patient Total time spent providing and/or coordinating discharge services: Less than 30 minutes Assessment and Plan - Patient/Caregiver Discharge Instructions Activity: resume usual activities as tolerated Diet: regular diet - Follow up Plan Follow up with: [facility] [Outside] - 12/06/17 8:00 am (The above appointment is with Dr. Gan, your psychiatric provider. Please bring photo ID and insurance card. You may contact the office regularly to check for cancellations that may allow you to be seen sooner.) [facility] [Outside] - 10/05/17 11:00 am (The above appointment is with Akiko Negron for mental health counseling. Please bring photo ID and insurance card.) Functional capacity at discharge: independent ambulation Overall status at discharge: Stable Disposition: Home, Self-Care Quality - Multiple Antipsychotics Patient discharged on 2 or more antipsychotic medications: No Procedures - Procedures Procedures: Medication Management, Crisis Stabilization, Supportive Therapy, Group Therapy, Psychoeducational Therapy
== END 2017-10-05 11:14 | disposition home or self-care (01) | DRG 882 ==
LOC: EMEROO 15:17 → 1ANU 18:50
PROVIDERS: ADMIT Psychiatry & Neurology Forensic Psychiatry; ATTEND Psychiatry & Neurology Forensic Psychiatry

== ENCOUNTER 2017-12-24 05:58 | Inpatient (IN) ==
[2017-12-24 06:24] LABS: Bilirubin,Urine Small (Negative); Blood,Urine Negative (Negative); Clarity,Urine Clear (Clear); Color,Urine Dark Yellow (Yellow); Glucose,Urine (UA) Normal (Normal); Ketones,Urine Trace mg/dL (Negative); Leukocyte Esterase,Urine Negative (Negative); Nitrite,Urine Negative (Negative); Protein,Urine 30 mg/dL (Neg-Trace); Specific Gravity,Urine > 1.030 (1.010-1.025); Urobilinogen,Urine Normal (Normal)
[2017-12-24 06:26] LABS: Bacteria,Urine None Seen per hpf (None-Few); Hyaline Casts,Urine None Seen per lpf (None-Few); RBC,Urine 0-3 per hpf (0-3); Squamous Epithelial Cell,Urine Few per lpf (None-Few); WBC,Urine 0-3 per hpf (0-3)
[2017-12-24 06:27] LABS: Amphetamine Screen,Urine Negative ng/mL (Cutoff=1000); Barbiturate Screen,Urine Negative ng/mL (Cutoff=200)
[2017-12-24 06:28] LABS: Benzodiazepines Screen,Urine Negative ng/mL (Cutoff=300); Cannabinoid Screen,Urine Negative ng/mL (Cutoff = 50); Cocaine Screen,Urine Negative ng/mL (Cutoff= 300); Opiate Screen,Urine Negative ng/mL (Cutoff=300); Phencyclidine Screen,Urine Negative ng/mL (Cutoff=25)
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
[2017-12-24 06:44] LABS: Basophils % 0.5 %; Eosinophils # 0.2 K/mcL (0.0-0.6); Eosinophils % 3.1 %; Hematocrit 46.7 % (37.5-50.1); Hemoglobin 16.5 g/dL (12.9-16.9); Immature Granulocytes % 0.4 % (0-4); Lymphocytes # 1.7 K/mcL (0.6-4.6); Lymphocytes % 22.6 %; Mean Corpuscular HGB Conc 35.3 g/dL (31.6-35.5); Mean Corpuscular Hemoglobin 30.9 pg (28.0-33.3); Mean Corpuscular Volume 87.5 fL (83.0-100.0); Monocytes # 0.5 K/mcL (0.0-1.3); Monocytes % 7.3 %; Neutrophils # 4.8 K/mcL (1.6-8.9); Platelet Count 288 K/mcL (140-400); Red Blood Count 5.34 M/mcL (4.19-5.50); Red Cell Distribution Width 11.6 % (11.5-14.5); Segmented Neutrophils % 66.1 %
[2017-12-24 07:09] LABS: Acetaminophen < 10 mcg/mL (10-20); BUN/Creatinine Ratio 15 (6-26); Blood Urea Nitrogen 16 mg/dL (6-20); Calcium 9.7 mg/dL (8.6-10.3); Carbon Dioxide 28 mEq/L (23-29); Chloride 106 mEq/L (98-107); Ethanol < 10 mg/dL (Less than 10); Glucose 97 mg/dL (70-105); Osmolality,Calculated 293 (280-300); Potassium 3.6 mEq/L (3.5-5.1); Salicylate < 2.5 mg/dL (15.0-30.0); Sodium 141 mEq/L (136-145); eGFR For Non-African Americans > 60 (> 60)
--- NOTE | 2017-12-24 07:25 | Emergency Department Note ---
Disposition Clinical Impression: Suicidal ideation, Homicidal ideation Disposition: Still a Patient Referrals: NONE,PCP [Primary Care Provider] - Forms: ED Satisfaction Letter General Adult HPI - General Chief complaint: ED Psychiatric Symptoms Stated complaint: SI/HI Time Seen by Provider: 12/24/17 06:03 Source: patient Mode of arrival: ambulatory Limitations: no limitations - History of Present Illness HPI Narrative: ED ATTESTATION NOTE: I examined this patient and my medical decision-making was reviewed with the Resident Physician/[employer]/PA/Student. I have personally performed a face to face evaluation on this patient & I agree with the documented findings, disposition and treatment plan as described except to the extent set forth below. Patient was seen with nurse practitioner Rey Harris please see copy of his note for details of this encounter Briefly: 27-year-old male comes in with suicidal homicidal ideations with discrete Era's. Patient has been medically cleared he will be evaluated by mental health services he is really pink slipped with a correctly completed and signed form on the chart. Disposition pending however admission is strongly anticipated and/or transfer. Pain Scale: 5 - Related Data Home Medications Medication Instructions Recorded Confirmed OXcarbazepine [Trileptal] 600 mg PO BID 05/31/17 10/01/17 Previous Rx's Medication Instructions Recorded ARIPiprazole [Abilify] 10 mg PO DAILY #14 tablet 07/04/16 Dicyclomine [Bentyl] 20 mg PO BID #60 capsule 07/04/16 Prazosin [Minipress] 8 mg PO HS 14 Days #14 capsule 10/05/17 Sertraline [Zoloft] 50 mg PO DAILY 28 Days #14 tablet 10/05/17 Allergies Allergy/AdvReac Type Severity Reaction Status Date / Time No Known Allergies Allergy Verified 10/01/17 15:19 Constitutional: Denies: fever, chills, weakness, weight change Eyes: Denies: eye pain, eye discharge, vision change ENT ED: Denies: ear pain, throat pain, dental pain, hearing loss, epistaxis, congestion, dysphagia Cardiovascular: Denies: chest pain, palpitations, dyspnea on exertion, edema, syncope Respiratory: Denies: cough, dyspnea, wheezes, hemoptysis, stridor Gastrointestinal: Denies: abdominal pain, nausea, vomiting, diarrhea, constipation, hematemesis, melena, hematochezia Genitourinary: Denies: urgency, dysuria, frequency, hematuria Musculoskeletal: Denies: back pain, neck pain, arthralgia, myalgia Integumentary: Denies: rash, abrasion, lesions Neurological: Denies: headache, weakness, numbness, paresthesias, confusion, abnormal gait, vertigo Psychiatric: Reports: as per HPI, suicidal thoughts, homicidal thoughts. Denies : anxiety, auditory hallucinations, visual hallucinations Endocrine: Denies: fatigue Hematological/Lymphatic: Denies: easy bleeding, easy bruising Allergic/Immunologic: Denies: facial swelling, urticaria Past Medical History - Past Medical History Medical history: Reports: non-contributory Surgical history: Reports: non-contributory, orthopedic, other Psychiatric history: Reports: bipolar, PTSD, other - Social History Smoking Status: Never smoker Smokeless Tobacco Status: No Alcohol use: Reports: none Drug use: Reports: none Physical Exam - General Limitations: no limitations General appearance: alert, in no apparent distress Course Vital Signs Temperature 97.7 F 12/24/17 06:01 Pulse Rate 96 12/24/17 06:01 Respiratory Rate 16 12/24/17 06:01 Blood Pressure 150/83 12/24/17 06:01 O2 Sat by Pulse Oximetry 95 12/24/17 06:01 Temperature 97.7 F 12/24/17 06:01 Pulse Rate 96 12/24/17 06:01 Respiratory Rate 16 12/24/17 06:01 Blood Pressure 150/83 12/24/17 06:01 O2 Sat by Pulse Oximetry 95 12/24/17 06:01 Oxygen Delivery Oxygen Delivery Room Air Medical Decision Making - Lab Data Result diagrams: 12/24/17 06:33 12/24/17 06:33 Lab Results 12/24/17 12/24/17 12/24/17 Range/Units 06:14 06:14 06:33 WBC 7.3 (4.3-11.1) K/mcL RBC 5.34 (4.19-5.50) M/mcL Hgb 16.5 (12.9-16.9) g/dL Hct 46.7 (37.5-50.1) % MCV 87.5 (83.0-100.0) fL MCH 30.9 (28.0-33.3) pg MCHC 35.3 (31.6-35.5) g/dL RDW 11.6 (11.5-14.5) % Plt Count 288 (140-400) K/mcL MPV 9.0 L (9.4-12.4) fL Immature Gran % 0.4 (0-4) % Seg Neutrophils % 66.1 % Lymphocytes % 22.6 % Monocytes % 7.3 % Eosinophils % 3.1 % Basophils % 0.5 % Neutrophils # 4.8 (1.6-8.9) K/mcL Lymphocytes # 1.7 (0.6-4.6) K/mcL Monocytes # 0.5 (0.0-1.3) K/mcL Eosinophils # 0.2 (0.0-0.6) K/mcL Basophils # 0.0 (0.0-0.2) K/mcL Sodium (136-145) mEq/L Potassium (3.5-5.1) mEq/L Chloride (98-107) mEq/L Carbon Dioxide (23-29) mEq/L BUN (6-20) mg/dL Creatinine (0.70-1.30) mg/dL Est GFR ( Amer) (> 60) Est GFR (Non-Af Amer) (> 60) BUN/Creatinine Ratio (6-26) Glucose (70-105) mg/dL Calculated Osmolality (280-300) Calcium (8.6-10.3) mg/dL Urine Color Dark Yellow (Yellow) Urine Clarity Clear (Clear) Urine pH 6.0 (5.0-8.0) pH Units Ur Specific [place] > 1.030 H (1.010-1.025) Urine Protein 30 H (Neg-Trace) mg/dL Urine Glucose (UA) Normal (Normal) mg/dL Urine Ketones Trace H (Negative) mg/dL Urine Blood Negative (Negative) Urine Nitrite Negative (Negative) Urine Bilirubin Small H (Negative) Urine Urobilinogen Normal (Normal) mg/dL Ur Leukocyte Esterase Negative (Negative) Urine Microscopic RBC 0-3 (0-3) per hpf Urine Microscopic WBC 0-3 (0-3) per hpf Ur Squamous Epith Cells Few (None-Few) per lpf Urine Bacteria None Seen (None-Few) per hpf Hyaline Casts None Seen (None-Few) per lpf Salicylates (15.0-30.0) mg/dL Urine Opiates Screen Negative (Jnfmoo=454) ng/mL Acetaminophen (10-20) mcg/mL Ur Barbiturates Screen Negative (Bykkoq=183) ng/mL Ur Phencyclidine Scrn Negative (Cutoff=25) ng/mL Ur Amphetamines Screen Negative (Cvekgh=9597) ng/mL U Benzodiazepines Scrn Negative (Egksvw=998) ng/mL Urine Cocaine Screen Negative (Cutoff= 300) ng/mL U Marijuana (THC) Screen Negative (Cutoff = 50) ng/mL Ur Drug Screen Interp See Below Ethyl Alcohol (Less than 10) mg/dL 12/24/17 Range/Units 06:33 WBC (4.3-11.1) K/mcL RBC (4.19-5.50) M/mcL Hgb (12.9-16.9) g/dL Hct (37.5-50.1) % MCV (83.0-100.0) fL MCH (28.0-33.3) pg MCHC (31.6-35.5) g/dL RDW (11.5-14.5) % Plt Count (140-400) K/mcL MPV (9.4-12.4) fL Immature Gran % (0-4) % Seg Neutrophils % % Lymphocytes % % Monocytes % % Eosinophils % % Basophils % % Neutrophils # (1.6-8.9) K/mcL Lymphocytes # (0.6-4.6) K/mcL Monocytes # (0.0-1.3) K/mcL Eosinophils # (0.0-0.6) K/mcL Basophils # (0.0-0.2) K/mcL Sodium 141 (136-145) mEq/L Potassium 3.6 (3.5-5.1) mEq/L Chloride 106 (98-107) mEq/L Carbon Dioxide 28 (23-29) mEq/L BUN 16 (6-20) mg/dL Creatinine 1.08 (0.70-1.30) mg/dL Est GFR ( Amer) > 60 (> 60) Est GFR (Non-Af Amer) > 60 (> 60) BUN/Creatinine Ratio 15 (6-26) Glucose 97 (70-105) mg/dL Calculated Osmolality 293 (280-300) Calcium 9.7 (8.6-10.3) mg/dL Urine Color (Yellow) Urine Clarity (Clear) Urine pH (5.0-8.0) pH Units Ur Specific [place] (1.010-1.025) Urine Protein (Neg-Trace) mg/dL Urine Glucose (UA) (Normal) mg/dL Urine Ketones (Negative) mg/dL Urine Blood (Negative) Urine Nitrite (Negative) Urine Bilirubin (Negative) Urine Urobilinogen (Normal) mg/dL Ur Leukocyte Esterase (Negative) Urine Microscopic RBC (0-3) per hpf Urine Microscopic WBC (0-3) per hpf Ur Squamous Epith Cells (None-Few) per lpf Urine Bacteria (None-Few) per hpf Hyaline Casts (None-Few) per lpf Salicylates < 2.5 L (15.0-30.0) mg/dL Urine Opiates Screen (Mnypus=339) ng/mL Acetaminophen < 10 L (10-20) mcg/mL Ur Barbiturates Screen (Zezcvb=749) ng/mL Ur Phencyclidine Scrn (Cutoff=25) ng/mL Ur Amphetamines Screen (Ngvypk=1527) ng/mL U Benzodiazepines Scrn (Hoaerc=979) ng/mL Urine Cocaine Screen (Cutoff= 300) ng/mL U Marijuana (THC) Screen (Cutoff = 50) ng/mL Ur Drug Screen Interp Ethyl Alcohol < 10 (Less than 10) mg/dL
[2017-12-24] MEDS ORDERED: *HR* LORazepam 2 MG/ML VIAL IM PRN (15:32)
[2017-12-24] MEDS ORDERED: Mag Hydrox/Al Hydrox/Simeth 30 ML UDC PO PRN (15:32)
[2017-12-24] MEDS ORDERED: Haloperidol Lactate 5 MG/ML VIAL IM PRN (15:32)
[2017-12-24] MEDS ORDERED: MOM Conc 10 ML UD.LIQ PO PRN (15:32)
[2017-12-24] MEDS ORDERED: Acetaminophen 325 MG TABLET PO PRN (15:32)
[2017-12-24] MEDS ORDERED: *HR* LORazepam 1 MG TABLET PO PRN (15:32)
[2017-12-24] MEDS: OXcarbazepine 150 MG TABLET PO SCH (20:18)
[2017-12-24] MEDS ORDERED: ARIPiprazole 5 MG TABLET PO SCH (21:00)
[2017-12-25] MEDS: OXcarbazepine 150 MG TABLET PO SCH ×2 (08:26→20:15)
--- NOTE | 2017-12-25 10:36 | Psychiatry History & Physical ---
Date of Encounter: 12/25/17 Time of Encounter: 10:05 History of Present Illness Patient Stated Chief Complaint: lots of intrusive violent thoughts. Medicare Admission Attestation: For traditional Medicare patients the provided hospital inpatient services are reasonable and necessary and in the case of services not specified as inpatient -only under 42 CFR 419.22 (n), that they are appropriately provided as inpatient services in accordance 42 CFR 412.3. For Critical Access Hospital the patient may reasonably be expected to be discharged or transferred to a hospital within 96 hours after admission to the Critical Access Hospital. Admitted From: Emergency Dept Plans for Post Hospital Care: Home History of Present Illness: Mr. Moralez is a 27 year old male was evaluated today , was admitted to ED for suicidal and homicidal ideation. He has h/o Bipolar/PTSD/insomnia/anxiety This is his third admission since 07/10. states he has violent thoughts and images to hurt someone and so i tried to cut my self never done before to see if doing that will relieve those thoughts but they did not, so i did again done last week, he has superficial abrasion. states saw black shadow going to [place] while driving but then he looked again but not there which has happened to him before also , last seen shadow figure was one month ago , has heard his name being called. he gets all those when upset and stressed. states he tries not to focus on my thoughts but i can be talking to people ad i will have thoughts of choking them or hurting them , sometimes i enjoy violent thoughts other times it makes me feel bad, it affects my work and my social life. Past Psych : patient seeked treatment 2-3 years ago for PTSD. he has not attempted to hurt self/others but had seeked help, this time he has cut self to relieve his thoughts. he has had traumatic childhood, lost his parents when 22 years old. both in same year. mother was alcohlic and of OD , father was bipolar and alcoholic , he was in senior care, of emphysema. this is his third inpatient. has tried abilify, zoloft, prazosin,risperdal, tegretal, trileptal. 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 Medically stable A/P Bipolar Affective Disorder depressed with psychosis PTSD Parasomnia. plan inpatient stabilization for suicidal/homicidal violent thoughts. start medications, plan d/w patient in detail. Past Med Surg Social Fam HX - Past Medical History Medical history: non-contributory - Past Psychiatric History Psychiatric history: Reports: bipolar, depression, PTSD, previous psychiatric hospitalization Family psychiatric history: Yes Family History of Suicide: Completed (mother of OD) - Past Surgical History Surgical History: non-contributory, orthopedic, other - Social History Smoking Status: Never smoker Smokeless Tobacco Status: No Alcohol use: none Drug use: none - Family History Father Hx Family Respiratory Disorders: Yes (Emphesema) Medications & Allergies Dicyclomine [Bentyl] 20 mg PO BID #60 capsule 07/04/16 [Rx] Prazosin [Minipress] 8 mg PO HS 14 Days #14 capsule 10/05/17 [Rx] Aripiprazole [Abilify] 15 mg PO HS 12/24/17 [History] Clomipramine HCl [Anafranil] 25 mg PO DAILY 12/24/17 [History] OXcarbazepine [Trileptal] 1,200 mg PO QPM 12/24/17 [History] OXcarbazepine [Trileptal] 600 mg PO QAM 12/24/17 [History] Sertraline [Zoloft] 100 mg PO DAILY 12/24/17 [History] 3 Allergy/AdvReac Type Severity Reaction Status Date / Time No Known Allergies Allergy Verified 12/24/17 09:30 Exam - HEENT Head exam IM: Present: atraumatic Eye exam IM: Present: EOMI, normal appearance, PERRL ENT exam IM: Present: normal exam - Neurological Neurological exam: Present: CN II-XII intact - Respiratory Respiratory exam IM: Present: CTAB - GI/Abdominal GI/Abdominal exam IM: Present: normal bowel sounds, soft. Absent: tenderness - Extremities Extremities exam IM: Present: full ROM - Skin Skin exam IM: Present: dry, warm - Constitutional Vitals: Temp Pulse Resp BP Pulse Ox 97.5 F L 92 16 149/92 98 12/25/17 09:00 12/25/17 09:00 12/25/17 09:00 12/25/17 09:00 12/24/17 13:12 General appearance: age & developmentally appropriate, average - Musculoskeletal Gait: normal Station: other Strength & Tone: normal for patient - Psychiatric Patient Orientation: Yes Person, Yes Time, Yes Place Level of alertness: Alert Behavior: calm, cooperative Psychomotor activity: Normal Eye Contact: Maintains Eye Contact Mood Description: Depressed, Anxious Affect description: congruent with mood Speech Volume: Normal Speech pattern: clear, coherent Language & Vocabulary: consistent with education Thought Process: Circumstantial, Racing Thought Content: Yes Suicidal ideation, Yes Homicidal ideation, Yes Preoccupation, Yes Paranoid delusion Perceptual Disturbances: Yes Auditory hallucinations, Yes Visual hallucinations Attention Span Ability: Capable of Focused Attention Memory Description: Grossly Intact Patient Reliability: Reliable Historian Fund of knowledge: Yes average Intelligence Estimate: Average Judgment: Limited Insight: Full Results - Labs Labs: Laboratory Last Values WBC 7.3 K/mcL (4.3-11.1) 12/24/17 06:33 RBC 5.34 M/mcL (4.19-5.50) 12/24/17 06:33 Hgb 16.5 g/dL (12.9-16.9) 12/24/17 06:33 Hct 46.7 % (37.5-50.1) 12/24/17 06:33 MCV 87.5 fL (83.0-100.0) 12/24/17 06:33 MCH 30.9 pg (28.0-33.3) 12/24/17 06:33 MCHC 35.3 g/dL (31.6-35.5) 12/24/17 06:33 RDW 11.6 % (11.5-14.5) 12/24/17 06:33 Plt Count 288 K/mcL (140-400) 12/24/17 06:33 MPV 9.0 fL (9.4-12.4) L 12/24/17 06:33 Immature Gran % 0.4 % (0-4) 12/24/17 06:33 Seg Neutrophils % 66.1 % 12/24/17 06:33 Lymphocytes % 22.6 % 12/24/17 06:33 Monocytes % 7.3 % 12/24/17 06:33 Eosinophils % 3.1 % 12/24/17 06:33 Basophils % 0.5 % 12/24/17 06:33 Neutrophils # 4.8 K/mcL (1.6-8.9) 12/24/17 06:33 Lymphocytes # 1.7 K/mcL (0.6-4.6) 12/24/17 06:33 Monocytes # 0.5 K/mcL (0.0-1.3) 12/24/17 06:33 Eosinophils # 0.2 K/mcL (0.0-0.6) 12/24/17 06:33 Basophils # 0.0 K/mcL (0.0-0.2) 12/24/17 06:33 Sodium 141 mEq/L (136-145) 12/24/17 06:33 Potassium 3.6 mEq/L (3.5-5.1) 12/24/17 06:33 Chloride 106 mEq/L (98-107) 12/24/17 06:33 Carbon Dioxide 28 mEq/L (23-29) 12/24/17 06:33 BUN 16 mg/dL (6-20) 12/24/17 06:33 Creatinine 1.08 mg/dL (0.70-1.30) 12/24/17 06:33 Est GFR ( Amer) > 60 (> 60) 12/24/17 06:33 Est GFR (Non-Af Amer) > 60 (> 60) 12/24/17 06:33 BUN/Creatinine Ratio 15 (6-26) 12/24/17 06:33 Glucose 97 mg/dL (70-105) 12/24/17 06:33 Calculated Osmolality 293 (280-300) 12/24/17 06:33 Calcium 9.7 mg/dL (8.6-10.3) 12/24/17 06:33 Urine Color Dark Yellow (Yellow) 12/24/17 06:14 Urine Clarity Clear (Clear) 12/24/17 06:14 Urine pH 6.0 pH Units (5.0-8.0) 12/24/17 06:14 Ur Specific [place] > 1.030 (1.010-1.025) H 12/24/17 06:14 Urine Protein 30 mg/dL (Neg-Trace) H 12/24/17 06:14 Urine Glucose (UA) Normal mg/dL (Normal) 12/24/17 06:14 Urine Ketones Trace mg/dL (Negative) H 12/24/17 06:14 Urine Blood Negative (Negative) 12/24/17 06:14 Urine Nitrite Negative (Negative) 12/24/17 06:14 Urine Bilirubin Small (Negative) H 12/24/17 06:14 Urine Urobilinogen Normal mg/dL (Normal) 12/24/17 06:14 Ur Leukocyte Esterase Negative (Negative) 12/24/17 06:14 Urine Microscopic RBC 0-3 per hpf (0-3) 12/24/17 06:14 Urine Microscopic WBC 0-3 per hpf (0-3) 12/24/17 06:14 Ur Squamous Epith Cells Few per lpf (None-Few) 12/24/17 06:14 Urine Bacteria None Seen per hpf (None-Few) 12/24/17 06:14 Hyaline Casts None Seen per lpf (None-Few) 12/24/17 06:14 Salicylates < 2.5 mg/dL (15.0-30.0) L 12/24/17 06:33 Urine Opiates Screen Negative ng/mL (Eegqhc=478) 12/24/17 06:14 Acetaminophen < 10 mcg/mL (10-20) L 12/24/17 06:33 Ur Barbiturates Screen Negative ng/mL (Jbnhas=908) 12/24/17 06:14 Ur Phencyclidine Scrn Negative ng/mL (Cutoff=25) 12/24/17 06:14 Ur Amphetamines Screen Negative ng/mL (Nklfvp=5863) 12/24/17 06:14 U Benzodiazepines Scrn Negative ng/mL (Nqeayf=667) 12/24/17 06:14 Urine Cocaine Screen Negative ng/mL (Cutoff= 300) 12/24/17 06:14 U Marijuana (THC) Screen Negative ng/mL (Cutoff = 50) 12/24/17 06:14 Ur Drug Screen Interp See Below 12/24/17 06:14 Ethyl Alcohol < 10 mg/dL (Less than 10) 12/24/17 06:33 Assessment and Plan (1) Homicidal ideation Current visit: No Status: Resolved Plan: Admit inpatient for safety and stabilization, Close observation, Suicide Precautions per unit protocol, Encourage participation in unit milieu, Group Therapy, Monitor sleep, Monitor appetite, Secure weapons, Family/Supportive other meeting Risks, benefits, side effects, alternatives discussed w/pt: Yes Patient agreeable to treatment: Yes Plans for Post Hospital Care: at Home Estimated Length of Stay (Days): 4 (2) Suicidal ideation Current visit: Yes Status: Acute Plan: Admit inpatient for safety and stabilization, Close observation, Suicide Precautions per unit protocol, Encourage participation in unit milieu, Group Therapy, Monitor sleep, Monitor appetite, Secure weapons, Family/Supportive other meeting Risks, benefits, side effects, alternatives discussed w/pt: Yes Patient agreeable to treatment: Yes Plans for Post Hospital Care: at Home (3) Bipolar disorder with psychotic features Current visit: No Status: Acute Plan: Admit inpatient for safety and stabilization, Close observation, Suicide Precautions per unit protocol, Encourage participation in unit milieu, Group Therapy, Monitor sleep, Monitor appetite, Secure weapons, Family/Supportive other meeting Risks, benefits, side effects, alternatives discussed w/pt: Yes Patient agreeable to treatment: Yes Plans for Post Hospital Care: at Home
[2017-12-25] MEDS: traZODone 50 MG TABLET PO PRN (20:16)
[2017-12-25] MEDS ORDERED: Lithium Carbonate 300 MG CAPSULE PO SCH (21:00)
[2017-12-26] MEDS: OXcarbazepine 150 MG TABLET PO SCH (08:12)
[2017-12-26] MEDS: ARIPiprazole 10 MG TABLET PO SCH (08:13)
--- NOTE | 2017-12-26 12:20 | Psychiatry Progress Note ---
Date of Encounter: 12/26/17 Time of Encounter: 11:37 Subjective Interval history: Patient seen today , case d/w treatment team, patient at present states he feels thoughts are not as intense but still has them , he is aware of his illness and has good insight . AT present moods are getting better , i had one thought of suicide today , yesterday it was more than2-3 times , i feel down like nothing will work but i see hope now.states sleep is better and my appetite is better before i did not had any. denies side effects. remains having si/hi and psychosis is improving. will increase lithium and decrease trileptal. Results - Vital Signs Vital Signs: Temp Pulse Resp BP Pulse Ox 97.5 F L 90 18 119/77 98 12/26/17 09:00 12/26/17 09:00 12/26/17 09:00 12/26/17 09:00 12/24/17 13:12 - Labs Labs: Laboratory Results - last 24 hr 12/25/17 11:23 TSH 0.703 Assessment and Plan (1) Homicidal ideation Current visit: No Status: Resolved Risks, benefits, side effects, alternatives discussed w/pt: Yes Patient agreeable to treatment: Yes (2) Suicidal ideation Current visit: Yes Status: Acute Risks, benefits, side effects, alternatives discussed w/pt: Yes Patient agreeable to treatment: Yes (3) Bipolar disorder with psychotic features Current visit: No Status: Acute Risks, benefits, side effects, alternatives discussed w/pt: Yes Patient agreeable to treatment: Yes Consult Discharge Plan - Plan Referrals: [facility] [Outside] - 01/07/18 8:40 am (The above appointment is with Dr. Gan for outpatient psychiatric assessment and medication management services. Please arrive 10 minutes early to all appointments to complete the check-in process. Please bring your insurance card (or [facility]) and photo ID. If you are unable to keep any scheduled appointment, 24 hour business notice of cancellation is expected. The above appointment(s) reflects first availability. You may contact the office regularly to check for cancellations that may allow you to be seen sooner. ) [facility] [Outside] Psychiatry Exam - Constitutional Vitals: Temp Pulse Resp BP Pulse Ox 97.5 F L 90 18 119/77 98 12/26/17 09:00 12/26/17 09:00 12/26/17 09:00 12/26/17 09:00 12/24/17 13:12 General appearance: age & developmentally appropriate - Musculoskeletal Gait: normal Station: other Strength & Tone: normal for patient - Psychiatric Patient Orientation: Yes Person, Yes Time, Yes Place Level of alertness: Alert Behavior: calm, cooperative Psychomotor activity: Normal Eye Contact: Maintains Eye Contact Mood Description: Anxious Affect description: constricted Speech Volume: Normal Speech pattern: coherent Language & Vocabulary: consistent with education Thought Process: Circumstantial, Racing Thought Content: Yes Suicidal ideation, Yes Homicidal ideation, Yes Paranoid delusion Attention Span Ability: Capable of Focused Attention Memory Description: Grossly Intact Patient Reliability: Reliable Historian Fund of knowledge: Yes average Intelligence Estimate: Average Judgment: Limited Insight: Full
[2017-12-26] MEDS: Lithium Carbonate 300 MG CAPSULE PO SCH (20:34)
[2017-12-26] MEDS: traZODone 50 MG TABLET PO PRN (20:34)
[2017-12-27] MEDS: Lithium Carbonate 300 MG CAPSULE PO SCH ×2 (08:53→20:15)
[2017-12-27] MEDS: ARIPiprazole 10 MG TABLET PO SCH (08:53)
--- NOTE | 2017-12-27 13:27 | Psychiatry Progress Note ---
Date of Encounter: 12/27/17 Time of Encounter: 12:50 Subjective Interval history: Patient seen today , case d/w treatment team. Patient yesterday became angry and threw chairs in meeting room, states they were doing anger management and talked about forgiveness and felt pressure and is not ready to forgive. he has been having violent thoughts and thoughts of hurting others and suicidal thoughts, today in bad mood , angry anf urges to throw chairs and break pictures. He has been given prn medication this morning. 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 He was told to read on Personality disorders and has started reading and agrees that he has Borderline Personality , he agreed to it. will continue same rx plan , will increase lithium to 900mg . continue close monitoring. Results - Vital Signs Vital Signs: Temp Pulse Resp BP Pulse Ox 97.5 F L 89 16 109/71 98 12/27/17 09:00 12/27/17 09:00 12/27/17 09:00 12/27/17 09:00 12/24/17 13:12 Assessment and Plan (1) Homicidal ideation Current visit: No Status: Resolved Risks, benefits, side effects, alternatives discussed w/pt: Yes Patient agreeable to treatment: Yes (2) Suicidal ideation Current visit: Yes Status: Acute Risks, benefits, side effects, alternatives discussed w/pt: Yes Patient agreeable to treatment: Yes (3) Bipolar disorder with psychotic features Current visit: No Status: Acute Risks, benefits, side effects, alternatives discussed w/pt: Yes Patient agreeable to treatment: Yes Consult Discharge Plan - Plan Referrals: [facility] [Outside] - 01/07/18 8:40 am (The above appointment is with Dr. Gan for outpatient psychiatric assessment and medication management services. Please arrive 10 minutes early to all appointments to complete the check-in process. Please [facility] your [facility] card ([facility]) and photo ID. If you are unable to keep any scheduled appointment, 24 hour business notice of cancellation is expected. The above appointment(s) reflects first availability. You may contact the office regularly to check for cancellations that may allow you to be seen sooner. ) [facility] [Outside] Psychiatry Exam - Constitutional Vitals: Temp Pulse Resp BP Pulse Ox 97.5 F L 89 16 109/71 98 12/27/17 09:00 12/27/17 09:00 12/27/17 09:00 12/27/17 09:00 12/24/17 13:12 General appearance: age & developmentally appropriate - Musculoskeletal Gait: normal Station: other Strength & Tone: normal for patient - Psychiatric Patient Orientation: Yes Person, Yes Time, Yes Place Level of alertness: Alert Behavior: guarded Psychomotor activity: Normal Eye Contact: Minimal Contact Mood Description: Depressed, Anxious, Irritable Affect description: constricted Speech Volume: Normal Speech pattern: coherent Language & Vocabulary: consistent with education Thought Process: Intact Thought Content: Yes Suicidal ideation, Yes Homicidal ideation, Yes Preoccupation Attention Span Ability: Capable of Focused Attention Memory Description: Grossly Intact Patient Reliability: Reliable Historian Fund of knowledge: Yes average Intelligence Estimate: Average Judgment: Poor Insight: Minimal
[2017-12-28] MEDS: ARIPiprazole 10 MG TABLET PO SCH (09:31)
[2017-12-28] MEDS: Lithium Carbonate 300 MG CAPSULE PO SCH ×2 (09:31→20:47)
--- NOTE | 2017-12-28 12:18 | Psychiatry Progress Note ---
Date of Encounter: 12/28/17 Time of Encounter: 11:50 Subjective Interval history: Patient seen today ,case d/w treatment ream. Patient slept well last night , states woke up little earlier. he feels little better today ,no thoughts of throwing chairs or pulling out frames. states my brother is coming to visit my daughter who is now 8 days now, and he feels excited . He still has thoughts are much better, i have no suicidal thoughts , homicidal thoughts are getting better , he has no plan to hurt anyone specific, states i did have but that is not now, he was asked to read on Personality disorder and he agreed that he has borderline personality , he was upset about it but brief intervention done and educated it is better to accept and treat it, he was also asked to journal his violent thoughts , states even Elvia has talked to us about journalling and i have time here so why not , it has been helping . regarding his medication , anafranil was discontinued , trileptal decreased to 600 mg bid , lithium increased to 600 mg , abilify increased to 20 mg. zoloft continued at 100 mg , plan to get lithium level and then increase lithium to 900 mg. continue stabilization and close monitoring. Review of Systems Psychiatric: Reports: depression, abnormal sleep pattern, homicidal ideation, auditory hallucinations, visual hallucinations, irritability, mood swings Results - Vital Signs Vital Signs: Temp Pulse Resp BP Pulse Ox 98.8 F 88 18 127/77 98 12/28/17 10:04 12/28/17 10:04 12/28/17 10:04 12/28/17 10:04 12/24/17 13:12 Assessment and Plan (1) Homicidal ideation Current visit: No Status: Resolved Risks, benefits, side effects, alternatives discussed w/pt: Yes Patient agreeable to treatment: Yes (2) Suicidal ideation Current visit: Yes Status: Acute Risks, benefits, side effects, alternatives discussed w/pt: Yes Patient agreeable to treatment: Yes (3) Bipolar disorder with psychotic features Current visit: No Status: Acute Risks, benefits, side effects, alternatives discussed w/pt: Yes Patient agreeable to treatment: Yes Consult Discharge Plan - Plan Referrals: [facility] [Outside] - 01/07/18 8:40 am (The above appointment is with Dr. Gan for outpatient psychiatric assessment and medication management services. Please arrive 10 minutes early to all appointments to complete the check-in process. Please bring your insurance card (or [facility]) and photo ID. If you are unable to keep any scheduled appointment, 24 hour business notice of cancellation is expected. The above appointment(s) reflects first availability. You may contact the office regularly to check for cancellations that may allow you to be seen sooner. ) [facility] [Outside] Psychiatry Exam - Constitutional Vitals: Temp Pulse Resp BP Pulse Ox 98.8 F 88 18 127/77 98 12/28/17 10:04 12/28/17 10:04 12/28/17 10:04 12/28/17 10:04 12/24/17 13:12 General appearance: age & developmentally appropriate - Musculoskeletal Gait: normal Station: other Strength & Tone: normal for patient - Psychiatric Patient Orientation: Yes Person, Yes Time, Yes Place Level of alertness: Alert Behavior: calm, cooperative Psychomotor activity: Normal Eye Contact: Maintains Eye Contact Mood Description: Anxious Affect description: constricted Speech Volume: Normal Speech pattern: normal rate, normal rhythm, normal tone Language & Vocabulary: consistent with education Thought Process: Intact Thought Content: Yes Homicidal ideation, Yes Preoccupation Perceptual Disturbances: No Auditory hallucinations, No Visual hallucinations Attention Span Ability: Capable of Focused Attention Memory Description: Grossly Intact Patient Reliability: Reliable Historian Fund of knowledge: Yes average Intelligence Estimate: Average Judgment: Limited Insight: Partial
[2017-12-28] MEDS: OXcarbazepine 150 MG TABLET PO SCH (20:50)
[2017-12-29] MEDS: ARIPiprazole 10 MG TABLET PO SCH (09:17)
[2017-12-29] MEDS: Lithium Carbonate 300 MG CAPSULE PO SCH ×2 (09:18→20:41)
[2017-12-29] MEDS: OXcarbazepine 150 MG TABLET PO SCH ×2 (09:18→20:41)
--- NOTE | 2017-12-29 11:27 | Psychiatry Progress Note ---
Date of Encounter: 12/29/17 Time of Encounter: 11:25 Subjective Interval history: Client reports he is feeling a little better. Intrusive thoughts have lessened but he was having them as recently as last night. A volatile patient on the unit is still triggering him. Feels urges to throw things when she goes off. Intrusive images are mostly him hurting others. Denies he truly wants to do this. However, he has a at home and he will be going into a chaotic environment at the time of discharge. Needs to feel more in control than he currently does. Review of Systems Constitutional: Denies: fever, chills, weakness, weight change Eyes: Denies: eye pain, vision change Ears, Nose, Throat: Denies: ear pain, throat pain, dental pain, hearing loss, congestion Cardiovascular: Denies: chest pain, palpitations, dyspnea on exertion Respiratory: Denies: cough, dyspnea, wheezes Gastrointestinal: Denies: abdominal pain, nausea, vomiting, diarrhea, constipation Musculoskeletal: Denies: joint swelling, joint pain Neurological: Denies: headache, weakness, numbness, memory loss Psychiatric: Reports: depression, abnormal sleep pattern, homicidal ideation, auditory hallucinations, visual hallucinations, irritability, mood swings Results - Vital Signs Vital Signs: Temp Pulse Resp BP Pulse Ox 97.6 F 82 16 123/82 98 12/29/17 09:00 12/29/17 09:00 12/29/17 09:00 12/29/17 09:00 12/24/17 13:12 - Drug Levels and Toxicology Drug Levels and Toxicology: Drug Levels and Toxicity 12/29/17 06:28 [place] 0.3 L - Labs Labs: Laboratory Results - last 24 hr 12/29/17 06:28 [place] 0.3 L Assessment and Plan (1) Bipolar disorder, current episode manic without psychotic features, severe Current visit: No Status: Acute Plan: Continue hospitalization, Close observation, Suicide Precautions per unit protocol, Encourage participation in unit milieu, Group Therapy, Monitor sleep, Monitor appetite Risks, benefits, side effects, alternatives discussed w/pt: Yes Patient agreeable to treatment: Yes (2) Chronic post-traumatic stress disorder Current visit: No Status: Acute Plan: Continue hospitalization, Close observation, Suicide Precautions per unit protocol, Encourage participation in unit milieu, Group Therapy, Monitor sleep, Monitor appetite Consult Discharge Plan - Plan Referrals: [facility] [Outside] - 01/07/18 8:40 am (The above appointment is with Dr. Gan for outpatient psychiatric assessment and medication management services. Please arrive 10 minutes early to all appointments to complete the check-in process. Please bring your insurance card (or [facility] award letter) and photo ID. If you are unable to keep any scheduled appointment, 24 hour business notice of cancellation is expected. The above appointment(s) reflects first availability. You may contact the office regularly to check for cancellations that may allow you to be seen sooner. ) [facility] [Outside] - 01/01/18 10:00 am (The above appointment is with Akiko Negron for outpatient mental health cousneling services. The fax number for this office is [phone].) Psychiatry Exam - Constitutional Vitals: Temp Pulse Resp BP Pulse Ox 97.6 F 82 16 123/82 98 12/29/17 09:00 12/29/17 09:00 12/29/17 09:00 12/29/17 09:00 12/24/17 13:12 General appearance: age & developmentally appropriate, well-groomed, well- nourished - Musculoskeletal Gait: normal Station: relaxed Strength & Tone: normal for patient - Psychiatric Patient Orientation: Yes Person, Yes Time, Yes Place Level of alertness: Alert Behavior: calm, cooperative Psychomotor activity: Normal Eye Contact: Maintains Eye Contact Mood Description: Anxious Affect description: congruent with mood Speech Volume: Normal Speech pattern: normal rate, normal rhythm, normal tone, fluent, spontaneous Language & Vocabulary: consistent with education Thought Process: Linear, Goal Oriented Thought Content: No Suicidal ideation, Yes Homicidal ideation, No Overt delusions Perceptual Disturbances: No Auditory hallucinations, No Visual hallucinations Attention Span Ability: Capable of Focused Attention Memory Description: Grossly Intact Patient Reliability: Reliable Historian Fund of knowledge: Yes abstraction ability, Yes aware of current events Intelligence Estimate: Average Judgment: Limited Insight: Partial
[2017-12-29] MEDS: traZODone 50 MG TABLET PO PRN (20:41)
[2017-12-29] MEDS: hydrOXYzine pamoate 25 MG CAPSULE PO PRN (20:41)
[2017-12-30] MEDS: ARIPiprazole 10 MG TABLET PO SCH (08:22)
[2017-12-30] MEDS: Lithium Carbonate 300 MG CAPSULE PO SCH ×2 (08:23→20:15)
[2017-12-30] MEDS: OXcarbazepine 150 MG TABLET PO SCH ×2 (08:23→20:15)
--- NOTE | 2017-12-30 09:19 | Psychiatry Progress Note ---
Date of Encounter: 12/30/17 Time of Encounter: 09:16 Subjective Interval history: States he is feeling better. Looks good. Smiling, pleasant. Intrusive thoughts are still there but he now feels they are manageable. Described them as "fleeting." Multiple family members visited yesterday. Had six visitors over the course of two visiting times. Seems to have a lot of support. Discussed discharge and he feels ready. Will keep him one more night given that today is the first day he felt thoughts were tolerable and he will be going home to a . If still feeling confident tomorrow, he can likely go home with outpatient follow-up. Review of Systems Constitutional: Denies: fever, chills, weakness, weight change Eyes: Denies: eye pain, vision change Ears, Nose, Throat: Denies: ear pain, throat pain, dental pain, hearing loss, congestion Cardiovascular: Denies: chest pain, palpitations, dyspnea on exertion Respiratory: Denies: cough, dyspnea, wheezes Gastrointestinal: Denies: abdominal pain, nausea, vomiting, diarrhea, constipation Musculoskeletal: Denies: joint swelling, joint pain Neurological: Denies: headache, weakness, numbness, memory loss Psychiatric: Reports: depression, abnormal sleep pattern, homicidal ideation, auditory hallucinations, visual hallucinations, irritability, mood swings Results - Vital Signs Vital Signs: Temp Pulse Resp BP Pulse Ox 98.0 F 72 18 134/85 98 12/29/17 20:32 12/29/17 20:32 12/29/17 20:32 12/29/17 20:32 12/24/17 13:12 Assessment and Plan (1) Bipolar disorder, current episode manic without psychotic features, severe Current visit: No Status: Acute Plan: Continue hospitalization, Close observation, Suicide Precautions per unit protocol, Encourage participation in unit milieu, Group Therapy, Monitor sleep, Monitor appetite Risks, benefits, side effects, alternatives discussed w/pt: Yes Patient agreeable to treatment: Yes (2) Chronic post-traumatic stress disorder Current visit: No Status: Acute Plan: Continue hospitalization, Close observation, Suicide Precautions per unit protocol, Encourage participation in unit milieu, Group Therapy, Monitor sleep, Monitor appetite Consult Discharge Plan - Plan Referrals: [facility] [Outside] - 01/07/18 8:40 am (The above appointment is with Dr. Gan for outpatient psychiatric assessment and medication management services. Please arrive 10 minutes early to all appointments to complete the check-in process. Please bring your insurance card (or [facility]) and photo ID. If you are unable to keep any scheduled appointment, 24 hour business notice of cancellation is expected. The above appointment(s) reflects first availability. You may contact the office regularly to check for cancellations that may allow you to be seen sooner. ) [facility] [Outside] - 01/01/18 10:00 am (The above appointment is with Akiko Negron for outpatient mental health cousneling services. The fax number for this office is [phone].) Psychiatry Exam - Constitutional Vitals: Temp Pulse Resp BP Pulse Ox 98.0 F 72 18 134/85 98 12/29/17 20:32 12/29/17 20:32 12/29/17 20:32 12/29/17 20:32 12/24/17 13:12 General appearance: age & developmentally appropriate, well-groomed, well- nourished - Musculoskeletal Gait: normal Station: relaxed Strength & Tone: normal for patient - Psychiatric Patient Orientation: Yes Person, Yes Time, Yes Place Level of alertness: Alert Behavior: calm, cooperative Psychomotor activity: Normal Eye Contact: Maintains Eye Contact Mood Description: Euthymic/stable Affect description: congruent with mood, full range Speech Volume: Normal Speech pattern: normal rate, normal rhythm, normal tone, fluent, spontaneous Language & Vocabulary: consistent with education Thought Process: Linear, Goal Oriented Thought Content: No Suicidal ideation, No Homicidal ideation, No Overt delusions Perceptual Disturbances: No Auditory hallucinations, No Visual hallucinations Attention Span Ability: Capable of Focused Attention Memory Description: Grossly Intact Patient Reliability: Reliable Historian Fund of knowledge: Yes abstraction ability, Yes aware of current events Intelligence Estimate: Average Judgment: Fair Insight: Partial
[2017-12-30] MEDS: hydrOXYzine pamoate 25 MG CAPSULE PO PRN (20:15)
[2017-12-30] MEDS: traZODone 50 MG TABLET PO PRN (20:15)
[2017-12-31] MEDS: ARIPiprazole 10 MG TABLET PO SCH (08:06)
[2017-12-31] MEDS: Lithium Carbonate 300 MG CAPSULE PO SCH (08:06)
[2017-12-31] MEDS: OXcarbazepine 150 MG TABLET PO SCH (08:07)
[2017-12-31 08:37] VITALS: BP 130/84
--- NOTE | 2017-12-31 11:02 | Discharge Summary ---
Date of Encounter: 12/31/17 Time of Encounter: 11:00 Diagnosis - Discharge Diagnosis (1) Homicidal ideation Priority: Secondary Status: Resolved (2) Bipolar disorder with psychotic features Priority: Primary Status: Acute (3) Chronic post-traumatic stress disorder Priority: Secondary Status: Acute (4) Suicidal ideation Status: Resolved Medications - Discharge Medications Prescriptions: ARIPiprazole [Abilify] 20 mg PO DAILY 14 Days #14 tablet Mather Carbonate 300 mg PO BID 28 Days #14 capsule Dicyclomine [Bentyl] 20 mg PO BID #60 capsule 07/04/16 [Rx] Prazosin [Minipress] 8 mg PO HS 14 Days #14 capsule 10/05/17 [Rx] Sertraline [Zoloft] 100 mg PO DAILY 12/24/17 [History] ARIPiprazole [Abilify] 20 mg PO DAILY 14 Days #14 tablet 12/31/17 [Rx] Mather Carbonate 300 mg PO BID 28 Days #14 capsule 12/31/17 [Rx] OXcarbazepine [Trileptal] 600 mg PO BID 30 Days #14 tablet 12/31/17 [Rx] 3 Allergy/AdvReac Type Severity Reaction Status Date / Time No Known Allergies Allergy Verified 12/24/17 09:30 Results Procedures and tests throughout hospitalization: Completed Lab Orders Category Date Time Status Mather Routine Lab 12/29/17 06:28 Completed TSH [Thyroid Stimulating Hormone] Routine Lab 12/25/17 11:23 Completed Provider Date of admission: 12/24/17 15:22 Primary care physician: PCP NONE Discharging clinician: Callum Gerber Psychiatry Exam - Constitutional Vitals: Temp Pulse Resp BP Pulse Ox 97.6 F 89 18 130/84 98 12/31/17 08:36 12/31/17 08:36 12/31/17 08:36 12/31/17 08:36 12/24/17 13:12 General appearance: age & developmentally appropriate, well-groomed, well- nourished - Musculoskeletal Gait: normal Station: relaxed Strength & Tone: normal for patient - Psychiatric Patient Orientation: Yes Person, Yes Time, Yes Place Level of alertness: Alert Behavior: calm, cooperative Psychomotor activity: Normal Eye Contact: Maintains Eye Contact Mood Description: Euthymic/stable Affect description: congruent with mood, full range Speech Volume: Normal Speech pattern: normal rate, normal rhythm, normal tone, fluent, spontaneous Language & Vocabulary: consistent with education Thought Process: Linear, Goal Oriented Thought Content: No Suicidal ideation, No Homicidal ideation, No Overt delusions Perceptual Disturbances: No Auditory hallucinations, No Visual hallucinations Attention Span Ability: Capable of Focused Attention Memory Description: Grossly Intact Patient Reliability: Reliable Historian Fund of knowledge: Yes abstraction ability, Yes aware of current events Intelligence Estimate: Average Judgment: Fair Insight: Partial Hospital Course Hospital course: Mr. Moralez is a 27 year old male Chief complaints: I may go to part-time at my job that will give me more flexibility. History of present illness. The patient had presented with homicidal ideation he had some volatility and so there was also concerned about suicidal ideation. The patient had been on an outpatient regimen including aripiprazole 15 mg this was increased increased to 20 mg he had been on Trileptal for bipolar disorder this Trileptal was reduced. The patient was started on lithium he tolerated the medicine. He noted no side effects other than some polyuria. He had a blood level of 0.3 and drawn approximate 4-5 days after starting lithium and noted a reduction in impulsive and violent behavior. The patient had previously been on Anafranil this was discontinued. The patient has been on prazosin but is able to wake up and attending to parental duties even in the middle the night. The patient had worked out some things with his job part-time basis. This had not our liver component and allowed for flexible scheduling. The patient had a good visit with family his and infant daughter. He looks forward to returning home to his family life. He has plans to see his outpatient counselor. He will also see Dr. Pickard for follow-up. He is able to verbalize this plan. The patient was educated to the risks and benefits of his medicines. Specifically he was given information on food drug interactions with lithium and drug drug interactions with lithium. He verbalized understanding. - Time Spent with Patient Total time spent providing and/or coordinating discharge services: Less than 30 minutes Assessment and Plan - Patient/Caregiver Discharge Instructions Activity: return to work, return to work once cleared by outpatient provider Diet: regular diet - Follow up Plan Follow up with: [facility] [Outside] - 01/07/18 8:40 am (The above appointment is with Dr. Gan for outpatient psychiatric assessment and medication management services. Please arrive 10 minutes early to all appointments to complete the check-in process. Please bring your insurance card ([facility]) and photo ID. If you are unable to keep any scheduled appointment, 24 hour business notice of cancellation is expected. The above appointment(s) reflects first availability. You may contact the office regularly to check for cancellations that may allow you to be seen sooner. ) [facility] [Outside] - 01/01/18 10:00 am (The above appointment is with Akiko Negron for outpatient mental [facility]. The fax number for this office is [phone].) Functional capacity at discharge: independent ambulation Overall status at discharge: Stable Disposition: Home, Self-Care Quality - Multiple Antipsychotics Patient discharged on 2 or more antipsychotic medications: No Procedures - Procedures Procedures: Medication Management, Crisis Stabilization, Supportive Therapy, Group Therapy, Psychoeducational Therapy
== END 2017-12-31 13:25 | disposition home or self-care (01) | DRG 885 ==
LOC: EMEROOARM 05:58 → SUATTDRO 15:22 → 1ANU 15:22
PROVIDERS: ADMIT Psychiatry & Neurology Psychiatry; ATTEND Psychiatry & Neurology Forensic Psychiatry

== ENCOUNTER 2018-03-11 14:51 | Inpatient (IN) ==
--- NOTE | 2018-03-11 15:16 | Emergency Department Note ---
Disposition Clinical Impression: Suicidal ideation Disposition: Transfer Psychiatric Hosp Condition: Good Referrals: NONE,PCP [Primary Care Provider] - Forms: ED Satisfaction Letter Psych HPI - General Chief Complaint: ED Psychiatric Symptoms Stated Complaint: SI/HI Time Seen by Provider: 03/11/18 15:07 Source: patient Mode of arrival: ambulatory Limitations: no limitations Nursing Notes Reviewed: Yes Vital Signs Reviewed: Yes - History of Present Illness HPI Narrative: Patient presents to the ED with the chief complaint for medical clearance. Patient has a history of bipolar disorder and PTSD. He is on multiple medications. Followed by Dr. Gan. Has had previous psychiatric admissions. States that really over the last year. He has had increasing obsessive thoughts about hurting himself and other people. Has not fully active on these plans yet, but states it is getting to the point where he does not know if he can control it anymore. No fever, chills, chest pain, shortness breath, abdominal pain, nausea, vomiting, diarrhea, rash, pain or swelling in his legs. Denies any medical complaints. No ingestions or drug use. - Related Data Home Medications Medication Instructions Recorded Confirmed OXcarbazepine [Oxcarbazepine] 600 mg PO BID 03/11/18 03/11/18 Prazosin HCl [Minipress] 8 mg PO HS 03/11/18 03/11/18 RX: [place] Carbonate 300 mg PO DAILY 03/11/18 03/11/18 Sertraline [Zoloft] 100 mg PO DAILY 03/11/18 03/11/18 Previous Rx's Medication Instructions Recorded RX: ARIPiprazole [Abilify] 20 mg PO DAILY 14 Days #14 tablet 12/31/17 Allergies Allergy/AdvReac Type Severity Reaction Status Date / Time No Known Allergies Allergy Verified 03/11/18 18:25 Review of Systems: As reviewed in the HPI. All other systems reviewed are negative or normal. Past Medical History - Past Medical History Attestation: Yes The following information was validated with the patient. Source: patient Medical history: Reports: no medical history Surgical history: Reports: non-contributory, orthopedic, other Psychiatric history: Reports: bipolar, depression, PTSD, previous psychiatric hospitalization - Social History Smoking Status: Never smoker Smokeless Tobacco Status: No Alcohol use: Reports: none Drug use: Reports: none Physical Exam CONSTITUTIONAL: [well appearing, alert and in no acute distress] EYES: [EOMI, clear conjunctiva, PERRLA] HENT: [Normocephalic, atraumatic, moist mucus membranes] NECK: [normal inspection, full ROM, trachea midline, no obvious swelling] PULMONARY: [normal chest rise and fall, no respiratory distress or stridor, no wheezes CARDIOVASCULAR: [regular rate, regular rhythm] GASTROINSTESTINAL: [soft, non-distended] GENITOURINARY/RECTAL: [deferred] NEUROLOGIC: [Alert, oriented x3, normal speech, moves all extremities] EXTREMITIES: [Normal inspection, full ROM] MUSCULOSKELETAL: [no gross deformities, atraumatic] SKIN: [No cyanosis, no diaphoresis, normal color, warm, no rash] PSYCHIATRIC: [normal mood and affect] - General Limitations: no limitations General appearance: alert, in no apparent distress Course Vital Signs Temperature 97.8 F 03/11/18 14:55 Pulse Rate 64 03/11/18 14:55 Respiratory Rate 16 03/11/18 14:55 Blood Pressure 147/95 03/11/18 14:55 O2 Sat by Pulse Oximetry 97 03/11/18 14:55 Temperature 97.8 F 03/11/18 14:57 Pulse Rate 64 03/11/18 14:57 Respiratory Rate 16 03/11/18 14:57 Blood Pressure 147/95 03/11/18 14:57 O2 Sat by Pulse Oximetry 97 03/11/18 14:57 Oxygen Delivery Oxygen Delivery Room Air Psych - Lab Data Result diagrams: 03/11/18 15:17 03/11/18 15:17 Lab Results 03/11/18 03/11/18 03/11/18 Range/Units 15:00 15:04 15:17 WBC 7.1 (4.3-11.1) K/mcL RBC 4.94 (4.19-5.50) M/mcL Hgb 14.9 (12.9-16.9) g/dL Hct 42.4 (37.5-50.1) % MCV 85.8 (83.0-100.0) fL MCH 30.2 (28.0-33.3) pg MCHC 35.1 (31.6-35.5) g/dL RDW 11.5 (11.5-14.5) % Plt Count 275 (140-400) K/mcL MPV 9.2 L (9.4-12.4) fL Immature Gran % 0.3 (0-4) % Seg Neutrophils % 72.4 % Lymphocytes % 17.5 % Monocytes % 6.4 % Eosinophils % 2.8 % Basophils % 0.6 % Neutrophils # 5.1 (1.6-8.9) K/mcL Lymphocytes # 1.2 (0.6-4.6) K/mcL Monocytes # 0.5 (0.0-1.3) K/mcL Eosinophils # 0.2 (0.0-0.6) K/mcL Basophils # 0.0 (0.0-0.2) K/mcL Sodium (136-145) mEq/L Potassium (3.5-5.1) mEq/L Chloride (98-107) mEq/L Carbon Dioxide (23-29) mEq/L BUN (6-20) mg/dL Creatinine (0.70-1.30) mg/dL Est GFR ( Amer) (> 60) Est GFR (Non-Af Amer) (> 60) BUN/Creatinine Ratio (6-26) Glucose (70-105) mg/dL Calculated Osmolality (280-300) Calcium (8.6-10.3) mg/dL Urine Color Yellow (Yellow) Urine Clarity Clear (Clear) Urine pH 6.0 (5.0-8.0) pH Units Ur Specific [place] 1.022 (1.010-1.025) Urine Protein Negative (Neg-Trace) mg/dL Urine Glucose (UA) Normal (Normal) mg/dL Urine Ketones Negative (Negative) mg/dL Urine Blood Negative (Negative) Urine Nitrite Negative (Negative) Urine Bilirubin Negative (Negative) Urine Urobilinogen Normal (Normal) mg/dL Ur Leukocyte Esterase Negative (Negative) Salicylates (15.0-30.0) mg/dL Urine Opiates Screen Negative (Undlhk=551) ng/mL Acetaminophen (10-20) mcg/mL Ur Barbiturates Screen Negative (Vuzrpu=348) ng/mL Ur Phencyclidine Scrn Negative (Cutoff=25) ng/mL Ur Amphetamines Screen Negative (Qxskrr=0428) ng/mL U Benzodiazepines Scrn Negative (Hhivhj=822) ng/mL [place] (0.6-1.2) mEq/L Urine Cocaine Screen Negative (Cutoff= 300) ng/mL U Marijuana (THC) Screen Negative (Cutoff = 50) ng/mL Ur Drug Screen Interp See Below Ethyl Alcohol (Less than 10) mg/dL 03/11/18 03/11/18 Range/Units 15:17 15:17 WBC (4.3-11.1) K/mcL RBC (4.19-5.50) M/mcL Hgb (12.9-16.9) g/dL Hct (37.5-50.1) % MCV (83.0-100.0) fL MCH (28.0-33.3) pg MCHC (31.6-35.5) g/dL RDW (11.5-14.5) % Plt Count (140-400) K/mcL MPV (9.4-12.4) fL Immature Gran % (0-4) % Seg Neutrophils % % Lymphocytes % % Monocytes % % Eosinophils % % Basophils % % Neutrophils # (1.6-8.9) K/mcL Lymphocytes # (0.6-4.6) K/mcL Monocytes # (0.0-1.3) K/mcL Eosinophils # (0.0-0.6) K/mcL Basophils # (0.0-0.2) K/mcL Sodium 140 (136-145) mEq/L Potassium 3.9 (3.5-5.1) mEq/L Chloride 105 (98-107) mEq/L Carbon Dioxide 28 (23-29) mEq/L BUN 13 (6-20) mg/dL Creatinine 1.03 (0.70-1.30) mg/dL Est GFR ( Amer) > 60 (> 60) Est GFR (Non-Af Amer) > 60 (> 60) BUN/Creatinine Ratio 13 (6-26) Glucose 108 H (70-105) mg/dL Calculated Osmolality 291 (280-300) Calcium 9.5 (8.6-10.3) mg/dL Urine Color (Yellow) Urine Clarity (Clear) Urine pH (5.0-8.0) pH Units Ur Specific [place] (1.010-1.025) Urine Protein (Neg-Trace) mg/dL Urine Glucose (UA) (Normal) mg/dL Urine Ketones (Negative) mg/dL Urine Blood (Negative) Urine Nitrite (Negative) Urine Bilirubin (Negative) Urine Urobilinogen (Normal) mg/dL Ur Leukocyte Esterase (Negative) Salicylates < 2.5 L (15.0-30.0) mg/dL Urine Opiates Screen (Yuwhbf=035) ng/mL Acetaminophen < 10 L (10-20) mcg/mL Ur Barbiturates Screen (Cuqebs=714) ng/mL Ur Phencyclidine Scrn (Cutoff=25) ng/mL Ur Amphetamines Screen (Alsjuu=4387) ng/mL U Benzodiazepines Scrn (Zscvpk=699) ng/mL [place] 0.1 L (0.6-1.2) mEq/L Urine Cocaine Screen (Cutoff= 300) ng/mL U Marijuana (THC) Screen (Cutoff = 50) ng/mL Ur Drug Screen Interp Ethyl Alcohol < 10 (Less than 10) mg/dL Psychiatric Medical Clearance - Medical Clearance Checklist Medical History: No Social History Section defined Current Vitals: Last Vital Signs Temp 97.8 F 03/11/18 14:57 Pulse 64 03/11/18 14:57 Resp 16 03/11/18 14:57 BP 147/95 03/11/18 14:57 Pulse Ox 97 03/11/18 14:57 Psychiatric Lab Panel: Drug Levels and Toxicity 03/11/18 03/11/18 03/11/18 15:04 15:17 15:17 Urine Opiates Screen Negative Acetaminophen < 10 L Ur Barbiturates Screen Negative Ur Phencyclidine Scrn Negative Ur Amphetamines Screen Negative U Benzodiazepines Scrn Negative [place] 0.1 L Urine Cocaine Screen Negative U Marijuana (THC) Screen Negative Ethyl Alcohol < 10 Abnormal Labs: Abnormal lab results MPV 9.2 fL (9.4-12.4) L 03/11/18 15:17 Glucose 108 mg/dL (70-105) H 03/11/18 15:17 Salicylates < 2.5 mg/dL (15.0-30.0) L 03/11/18 15:17 Acetaminophen < 10 mcg/mL (10-20) L 03/11/18 15:17 [place] 0.1 mEq/L (0.6-1.2) L 03/11/18 15:17 Statement of Medical Clearance: I have evaluated the patient, reviewed diagnostic information, and certify that the patient's medical condition is sufficiently stable that transfer to the psychiatric unit does not pose a significant risk of deterioration.
[2018-03-11 15:20] LABS: Bilirubin,Urine Negative (Negative); Blood,Urine Negative (Negative); Clarity,Urine Clear (Clear); Color,Urine Yellow (Yellow); Glucose,Urine (UA) Normal (Normal); Ketones,Urine Negative (Negative); Leukocyte Esterase,Urine Negative (Negative); Nitrite,Urine Negative (Negative); Protein,Urine Negative (Neg-Trace); Specific Gravity,Urine 1.022 (1.010-1.025); Urobilinogen,Urine Normal (Normal)
[2018-03-11 15:41] LABS: Amphetamine Screen,Urine Negative ng/mL (Cutoff=1000); Barbiturate Screen,Urine Negative ng/mL (Cutoff=200); Benzodiazepines Screen,Urine Negative ng/mL (Cutoff=200); Cannabinoid Screen,Urine Negative ng/mL (Cutoff = 50); Cocaine Screen,Urine Negative ng/mL (Cutoff= 300); Opiate Screen,Urine Negative ng/mL (Cutoff=300); Phencyclidine Screen,Urine Negative ng/mL (Cutoff=25)
[2018-03-11 15:48] LABS: Basophils % 0.6 %; Eosinophils # 0.2 K/mcL (0.0-0.6); Eosinophils % 2.8 %; Hematocrit 42.4 % (37.5-50.1); Hemoglobin 14.9 g/dL (12.9-16.9); Immature Granulocytes % 0.3 % (0-4); Lymphocytes # 1.2 K/mcL (0.6-4.6); Lymphocytes % 17.5 %; Mean Corpuscular HGB Conc 35.1 g/dL (31.6-35.5); Mean Corpuscular Hemoglobin 30.2 pg (28.0-33.3); Mean Corpuscular Volume 85.8 fL (83.0-100.0); Mean Platelet Volume 9.2 fL (9.4-12.4); Monocytes # 0.5 K/mcL (0.0-1.3); Monocytes % 6.4 %; Neutrophils # 5.1 K/mcL (1.6-8.9); Platelet Count 275 K/mcL (140-400); Red Blood Count 4.94 M/mcL (4.19-5.50); Red Cell Distribution Width 11.5 % (11.5-14.5); Segmented Neutrophils % 72.4 %
[2018-03-11 15:53] LABS: Acetaminophen < 10 mcg/mL (10-20); BUN/Creatinine Ratio 13 (6-26); Blood Urea Nitrogen 13 mg/dL (6-20); Calcium 9.5 mg/dL (8.6-10.3); Carbon Dioxide 28 mEq/L (23-29); Chloride 105 mEq/L (98-107); Ethanol < 10 mg/dL (Less than 10); Glucose 108 mg/dL (70-105); Osmolality,Calculated 291 (280-300); Potassium 3.9 mEq/L (3.5-5.1); Salicylate < 2.5 mg/dL (15.0-30.0); Sodium 140 mEq/L (136-145); eGFR For Non-African Americans > 60 (> 60)
--- NOTE | 2018-03-11 15:58 | Emergency Department Note ---
Disposition Clinical Impression: Suicidal ideation Disposition: Still a Patient Forms: ED Satisfaction Letter General Adult HPI - General Chief complaint: ED Psychiatric Symptoms Stated complaint: SI/HI Time Seen by Provider: 03/11/18 15:07 Source: patient Mode of arrival: ambulatory Limitations: no limitations - History of Present Illness Pain Scale: 0 - Related Data Home Medications Medication Instructions Recorded Confirmed Sertraline [Zoloft] 100 mg PO DAILY 12/24/17 12/24/17 Previous Rx's Medication Instructions Recorded Dicyclomine [Bentyl] 20 mg PO BID #60 capsule 07/04/16 Prazosin [Minipress] 8 mg PO HS 14 Days #14 capsule 10/05/17 ARIPiprazole [Abilify] 20 mg PO DAILY 14 Days #14 tablet 12/31/17 [place] Carbonate 300 mg PO BID 28 Days #14 capsule 12/31/17 OXcarbazepine [Trileptal] 600 mg PO BID 30 Days #14 tablet 12/31/17 Allergies Allergy/AdvReac Type Severity Reaction Status Date / Time No Known Allergies Allergy Verified 12/24/17 09:30 Past Medical History - Past Medical History Medical history: Reports: no medical history Surgical history: Reports: non-contributory, orthopedic, other Psychiatric history: Reports: bipolar, depression, PTSD, previous psychiatric hospitalization - Social History Smoking Status: Never smoker Smokeless Tobacco Status: No Alcohol use: Reports: none Drug use: Reports: none Physical Exam - General Limitations: no limitations General appearance: alert, in no apparent distress Course Vital Signs Temperature 97.8 F 03/11/18 14:55 Pulse Rate 64 03/11/18 14:55 Respiratory Rate 16 03/11/18 14:55 Blood Pressure 147/95 03/11/18 14:55 O2 Sat by Pulse Oximetry 97 03/11/18 14:55 Temperature 97.8 F 03/11/18 14:57 Pulse Rate 64 03/11/18 14:57 Respiratory Rate 16 03/11/18 14:57 Blood Pressure 147/95 03/11/18 14:57 O2 Sat by Pulse Oximetry 97 03/11/18 14:57 Oxygen Delivery Oxygen Delivery Room Air Medical Decision Making - Lab Data Result diagrams: 03/11/18 15:17 03/11/18 15:17 Lab Results 03/11/18 03/11/18 03/11/18 Range/Units 15:00 15:04 15:17 WBC 7.1 (4.3-11.1) K/mcL RBC 4.94 (4.19-5.50) M/mcL Hgb 14.9 (12.9-16.9) g/dL Hct 42.4 (37.5-50.1) % MCV 85.8 (83.0-100.0) fL MCH 30.2 (28.0-33.3) pg MCHC 35.1 (31.6-35.5) g/dL RDW 11.5 (11.5-14.5) % Plt Count 275 (140-400) K/mcL MPV 9.2 L (9.4-12.4) fL Immature Gran % 0.3 (0-4) % Seg Neutrophils % 72.4 % Lymphocytes % 17.5 % Monocytes % 6.4 % Eosinophils % 2.8 % Basophils % 0.6 % Neutrophils # 5.1 (1.6-8.9) K/mcL Lymphocytes # 1.2 (0.6-4.6) K/mcL Monocytes # 0.5 (0.0-1.3) K/mcL Eosinophils # 0.2 (0.0-0.6) K/mcL Basophils # 0.0 (0.0-0.2) K/mcL Sodium (136-145) mEq/L Potassium (3.5-5.1) mEq/L Chloride (98-107) mEq/L Carbon Dioxide (23-29) mEq/L BUN (6-20) mg/dL Creatinine (0.70-1.30) mg/dL Est GFR ( Amer) (> 60) Est GFR (Non-Af Amer) (> 60) BUN/Creatinine Ratio (6-26) Glucose (70-105) mg/dL Calculated Osmolality (280-300) Calcium (8.6-10.3) mg/dL Urine Color Yellow (Yellow) Urine Clarity Clear (Clear) Urine pH 6.0 (5.0-8.0) pH Units Ur Specific [place] 1.022 (1.010-1.025) Urine Protein Negative (Neg-Trace) mg/dL Urine Glucose (UA) Normal (Normal) mg/dL Urine Ketones Negative (Negative) mg/dL Urine Blood Negative (Negative) Urine Nitrite Negative (Negative) Urine Bilirubin Negative (Negative) Urine Urobilinogen Normal (Normal) mg/dL Ur Leukocyte Esterase Negative (Negative) Salicylates (15.0-30.0) mg/dL Urine Opiates Screen Negative (Twdfuv=909) ng/mL Acetaminophen (10-20) mcg/mL Ur Barbiturates Screen Negative (Baogzr=143) ng/mL Ur Phencyclidine Scrn Negative (Cutoff=25) ng/mL Ur Amphetamines Screen Negative (Dfslai=0240) ng/mL U Benzodiazepines Scrn Negative (Jnflzw=913) ng/mL [place] (0.6-1.2) mEq/L Urine Cocaine Screen Negative (Cutoff= 300) ng/mL U Marijuana (THC) Screen Negative (Cutoff = 50) ng/mL Ur Drug Screen Interp See Below Ethyl Alcohol (Less than 10) mg/dL 03/11/18 03/11/18 Range/Units 15:17 15:17 WBC (4.3-11.1) K/mcL RBC (4.19-5.50) M/mcL Hgb (12.9-16.9) g/dL Hct (37.5-50.1) % MCV (83.0-100.0) fL MCH (28.0-33.3) pg MCHC (31.6-35.5) g/dL RDW (11.5-14.5) % Plt Count (140-400) K/mcL MPV (9.4-12.4) fL Immature Gran % (0-4) % Seg Neutrophils % % Lymphocytes % % Monocytes % % Eosinophils % % Basophils % % Neutrophils # (1.6-8.9) K/mcL Lymphocytes # (0.6-4.6) K/mcL Monocytes # (0.0-1.3) K/mcL Eosinophils # (0.0-0.6) K/mcL Basophils # (0.0-0.2) K/mcL Sodium 140 (136-145) mEq/L Potassium 3.9 (3.5-5.1) mEq/L Chloride 105 (98-107) mEq/L Carbon Dioxide 28 (23-29) mEq/L BUN 13 (6-20) mg/dL Creatinine 1.03 (0.70-1.30) mg/dL Est GFR ( Amer) > 60 (> 60) Est GFR (Non-Af Amer) > 60 (> 60) BUN/Creatinine Ratio 13 (6-26) Glucose 108 H (70-105) mg/dL Calculated Osmolality 291 (280-300) Calcium 9.5 (8.6-10.3) mg/dL Urine Color (Yellow) Urine Clarity (Clear) Urine pH (5.0-8.0) pH Units Ur Specific [place] (1.010-1.025) Urine Protein (Neg-Trace) mg/dL Urine Glucose (UA) (Normal) mg/dL Urine Ketones (Negative) mg/dL Urine Blood (Negative) Urine Nitrite (Negative) Urine Bilirubin (Negative) Urine Urobilinogen (Normal) mg/dL Ur Leukocyte Esterase (Negative) Salicylates < 2.5 L (15.0-30.0) mg/dL Urine Opiates Screen (Iwvkdv=772) ng/mL Acetaminophen < 10 L (10-20) mcg/mL Ur Barbiturates Screen (Gekpvq=821) ng/mL Ur Phencyclidine Scrn (Cutoff=25) ng/mL Ur Amphetamines Screen (Lxuswz=4858) ng/mL U Benzodiazepines Scrn (Odjocr=599) ng/mL [place] 0.1 L (0.6-1.2) mEq/L Urine Cocaine Screen (Cutoff= 300) ng/mL U Marijuana (THC) Screen (Cutoff = 50) ng/mL Ur Drug Screen Interp Ethyl Alcohol < 10 (Less than 10) mg/dL Attestation Statement - Attestation Attestation: I examined this patient and my medical decision-making was reviewed with the Resident Physician. I agree with the documented findings, disposition and treatment plan as described except to the extent set forth below. 27 yaer old male presents tot he ED with complaints of SI and state that he doesnot have a plan but it is increasing in frequency the thoughts. Patinet is medically cleared and we willl consult 1A for reccs.
[2018-03-11] MEDS ORDERED: MOM Conc 10 ML UD.LIQ PO PRN (18:57)
[2018-03-11] MEDS ORDERED: *HR* LORazepam 2 MG/ML VIAL IM PRN (18:57)
[2018-03-11] MEDS ORDERED: Haloperidol Lactate 5 MG/ML VIAL IM PRN (18:57)
[2018-03-11] MEDS ORDERED: traZODone 50 MG TABLET PO PRN (18:57)
[2018-03-11] MEDS ORDERED: Acetaminophen 325 MG TABLET PO PRN (18:57)
[2018-03-11] MEDS ORDERED: Mag Hydrox/Al Hydrox/Simeth 30 ML UDC PO PRN (18:57)
[2018-03-11] MEDS: OXcarbazepine 150 MG TABLET PO SCH (20:51)
[2018-03-11] MEDS: Lithium Carbonate 300 MG CAPSULE PO SCH (20:51)
[2018-03-11] MEDS: ARIPiprazole 10 MG TABLET PO SCH (20:51)
[2018-03-11] MEDS: hydrOXYzine pamoate 25 MG CAPSULE PO PRN (20:52)
[2018-03-12] MEDS: Lithium Carbonate 300 MG CAPSULE PO SCH ×2 (08:22→21:06)
[2018-03-12] MEDS: OXcarbazepine 150 MG TABLET PO SCH ×2 (08:23→21:06)
--- NOTE | 2018-03-12 12:20 | Psychiatry History & Physical ---
Date of Encounter: 03/12/18 Time of Encounter: 12:00 History of Present Illness Patient Stated Chief Complaint: I had homocidal ideation Medicare Admission Attestation: For traditional Medicare patients the provided hospital inpatient services are reasonable and necessary and in the case of services not specified as inpatient-only under 42 CFR 419.22 (n), that they are appropriately provided as inpatient services in accordance 42 CFR 412.3. For Critical Access Hospital the patient may reasonably be expected to be discharged or transferred to a hospital within 96 hours after admission to the Critical Access Hospital. Admitted From: Emergency Dept Plans for Post Hospital Care: Home History of Present Illness: Mr. Moralez is a 27 year old male The patient has been seen previously on this unit. This the third hospitalization in 2018. Chief complaint and homicidal ideation. History of present illness. The patient has been followed on outpatient basis at [facility] area the reader is referred to recent notes and he was most recently seen on 02/07/2018. The patient had presented to the emergency room with homicidal ideation he and a friend who also works as a ps ychiatric nurse who noted some increase in cycling of wall he was on the medicine Zoloft. The patient did not feel his medicines were working. To briefly summarize dicyclomine is for irritable bowel syndrome oxcarbazepine is a mood stabilizer but he did not think it was working Abilify at 15 mg was to help with mood and intrusive thinking but has not. [place] carbonate was added 300 mg twice a day but the patient was only able to take once a day because some sedation and some tremor. It is not clear that that was helpful for with explosive behavior. Prazosin is remained at 8 mg daily at bedtime the patient continues to have nightmares but less parasomnia. Patient reports some tingling in the bone's or an electric sensation through the bones. The patient Zoloft was reduced from 100 mg to 50 mg. Nonetheless the patient had homicidal ideations with thoughts of hurting individuals. On the unit he is stated that he has had thoughts of hurting or killing staff. He has had intrusive thoughts of using blunt objects. The patient does have some counseling from a counselor and Zhane is working on some here now issues. The patient has never had a trial of lamotrigine, carbamazepine, Depakote and the presence of Zoloft may have worsened mood. Past Med Surg Social Fam HX - Past Medical History Medical history: no medical history - Past Psychiatric History Psychiatric history: Reports: bipolar, PTSD, previous psychiatric hospitalization - Past Surgical History Surgical History: non-contributory, orthopedic, other - Social History Smoking Status: Never smoker Smokeless Tobacco Status: No Alcohol use: none Drug use: none Occupational status: employed Current living situation: Home - Independent Activity Level: Independent ambulation Recent Out of Country Travel Within the Last 8 Weeks: No Exposure or Possible Exposure to Illness During Travel: No - Family History Father Hx Family Respiratory Disorders: Yes (Emphesema) Medications & Allergies ARIPiprazole [Abilify] 20 mg PO DAILY 14 Days #14 tablet 12/31/17 [Rx] [place] Carbonate 300 mg PO DAILY 03/11/18 [History] OXcarbazepine [Oxcarbazepine] 600 mg PO BID 03/11/18 [History] Prazosin HCl [Minipress] 8 mg PO HS 03/11/18 [History] Sertraline [Zoloft] 100 mg PO DAILY 03/11/18 [History] Allergy/AdvReac Type Severity Reaction Status Date / Time No Known Allergies Allergy Verified 03/11/18 18:25 Review of Systems Gastrointestinal: Reports: abdominal pain, constipation Psychiatric: Reports: abnormal sleep pattern, suicidal ideation, homicidal ideation, other Exam - HEENT Head exam IM: Present: atraumatic Eye exam IM: Present: EOMI, normal appearance, PERRL ENT exam IM: Present: normal exam - Neurological Neurological exam: Present: CN II-XII intact - Respiratory Respiratory exam IM: Present: CTAB - GI/Abdominal GI/Abdominal exam IM: Present: normal bowel sounds, soft. Absent: tenderness - Extremities Extremities exam IM: Present: full ROM - Skin Skin exam IM: Present: dry, warm - Constitutional Vitals: Temp Pulse Resp BP Pulse Ox 97.9 F 75 18 118/73 97 03/12/18 08:57 03/12/18 08:57 03/12/18 08:57 03/12/18 08:57 03/12/18 08:57 General appearance: age & developmentally appropriate, well-groomed, well-nourished - Musculoskeletal Gait: normal, brisk, other Station: shaky Strength & Tone: normal for patient - Psychiatric Patient Orientation: Yes Person, Yes Time, Yes Place Level of alertness: Alert Behavior: calm, cooperative Psychomotor activity: Increased Eye Contact: Maintains Eye Contact Mood Description: Irritable Affect description: congruent with mood, dysphoric Speech Volume: Normal Speech pattern: normal rate, normal rhythm, normal tone, fluent, spontaneous Language & Vocabulary: consistent with education Thought Process: Linear, Goal Oriented Thought Content: Yes Suicidal ideation, Yes Homicidal ideation, No Overt delusions, Yes Preoccupation, Yes Obsessive thoughts Perceptual Disturbances: No Auditory hallucinations, No Visual hallucinations Attention Span Ability: Capable of Focused Attention Memory Description: Grossly Intact Patient Reliability: Reliable Historian Fund of knowledge: Yes abstraction ability, Yes average, Yes aware of current events Intelligence Estimate: Above [place] Judgment: Fair Insight: Partial Results - Drug Levels and Toxicology Drug Levels and Toxicology: Drug Levels and Toxicity 03/11/18 03/11/18 03/11/18 15:04 15:17 15:17 Urine Opiates Screen Negative Acetaminophen < 10 L Ur Barbiturates Screen Negative Ur Phencyclidine Scrn Negative Ur Amphetamines Screen Negative U Benzodiazepines Scrn Negative [place] 0.1 L Urine Cocaine Screen Negative U Marijuana (THC) Screen Negative Ethyl Alcohol < 10 - Labs Labs: Laboratory Last Values WBC 7.1 K/mcL (4.3-11.1) 03/11/18 15:17 RBC 4.94 M/mcL (4.19-5.50) 03/11/18 15:17 Hgb 14.9 g/dL (12.9-16.9) 03/11/18 15:17 Hct 42.4 % (37.5-50.1) 03/11/18 15:17 MCV 85.8 fL (83.0-100.0) 03/11/18 15:17 MCH 30.2 pg (28.0-33.3) 03/11/18 15:17 MCHC 35.1 g/dL (31.6-35.5) 03/11/18 15:17 RDW 11.5 % (11.5-14.5) 03/11/18 15:17 Plt Count 275 K/mcL (140-400) 03/11/18 15:17 MPV 9.2 fL (9.4-12.4) L 03/11/18 15:17 Immature Gran % 0.3 % (0-4) 03/11/18 15:17 Seg Neutrophils % 72.4 % 03/11/18 15:17 Lymphocytes % 17.5 % 03/11/18 15:17 Monocytes % 6.4 % 03/11/18 15:17 Eosinophils % 2.8 % 03/11/18 15:17 Basophils % 0.6 % 03/11/18 15:17 Neutrophils # 5.1 K/mcL (1.6-8.9) 03/11/18 15:17 Lymphocytes # 1.2 K/mcL (0.6-4.6) 03/11/18 15:17 Monocytes # 0.5 K/mcL (0.0-1.3) 03/11/18 15:17 Eosinophils # 0.2 K/mcL (0.0-0.6) 03/11/18 15:17 Basophils # 0.0 K/mcL (0.0-0.2) 03/11/18 15:17 Sodium 140 mEq/L (136-145) 03/11/18 15:17 Potassium 3.9 mEq/L (3.5-5.1) 03/11/18 15:17 Chloride 105 mEq/L (98-107) 03/11/18 15:17 Carbon Dioxide 28 mEq/L (23-29) 03/11/18 15:17 BUN 13 mg/dL (6-20) 03/11/18 15:17 Creatinine 1.03 mg/dL (0.70-1.30) 03/11/18 15:17 Est GFR ( Amer) > 60 (> 60) 03/11/18 15:17 Est GFR (Non-Af Amer) > 60 (> 60) 03/11/18 15:17 BUN/Creatinine Ratio 13 (6-26) 03/11/18 15:17 Glucose 108 mg/dL (70-105) H 03/11/18 15:17 Calculated Osmolality 291 (280-300) 03/11/18 15:17 Calcium 9.5 mg/dL (8.6-10.3) 03/11/18 15:17 Urine Color Yellow (Yellow) 03/11/18 15:00 Urine Clarity Clear (Clear) 03/11/18 15:00 Urine pH 6.0 pH Units (5.0-8.0) 03/11/18 15:00 Ur Specific [place] 1.022 (1.010-1.025) 03/11/18 15:00 Urine Protein Negative mg/dL (Neg-Trace) 03/11/18 15:00 Urine Glucose (UA) Normal mg/dL (Normal) 03/11/18 15:00 Urine Ketones Negative mg/dL (Negative) 03/11/18 15:00 Urine Blood Negative (Negative) 03/11/18 15:00 Urine Nitrite Negative (Negative) 03/11/18 15:00 Urine Bilirubin Negative (Negative) 03/11/18 15:00 Urine Urobilinogen Normal mg/dL (Normal) 03/11/18 15:00 Ur Leukocyte Esterase Negative (Negative) 03/11/18 15:00 Salicylates < 2.5 mg/dL (15.0-30.0) L 03/11/18 15:17 Urine Opiates Screen Negative ng/mL (Vtnncq=244) 03/11/18 15:04 Acetaminophen < 10 mcg/mL (10-20) L 03/11/18 15:17 Ur Barbiturates Screen Negative ng/mL (Oopqwq=871) 03/11/18 15:04 Ur Phencyclidine Scrn Negative ng/mL (Cutoff=25) 03/11/18 15:04 Ur Amphetamines Screen Negative ng/mL (Wsvtnf=8290) 03/11/18 15:04 U Benzodiazepines Scrn Negative ng/mL (Vqvbls=200) 03/11/18 15:04 [place] 0.1 mEq/L (0.6-1.2) L 03/11/18 15:17 Urine Cocaine Screen Negative ng/mL (Cutoff= 300) 03/11/18 15:04 U Marijuana (THC) Screen Negative ng/mL (Cutoff = 50) 03/11/18 15:04 Ur Drug Screen Interp See Below 03/11/18 15:04 Ethyl Alcohol < 10 mg/dL (Less than 10) 03/11/18 15:17 Assessment and Plan (1) Bipolar disorder, current episode mixed, severe, without psychotic features Current visit: Yes Status: Acute Plan: Admit inpatient for safety and stabilization, Close observation, Suicide Precautions per unit protocol, Encourage participation in unit milieu, Group Therapy, Monitor sleep, Monitor appetite, Secure weapons, Family/Supportive other meeting Risks, benefits, side effects, alternatives discussed w/pt: Yes Patient agreeable to treatment: Yes Plans for Post Hospital Care: Home Estimated Length of Stay (Days): 5 (2) Homicidal ideation Current visit: Yes Status: Acute Plan: Admit inpatient for safety and stabilization, Close observation, Suicide Precautions per unit protocol, Secure weapons Risks, benefits, side effects, alternatives discussed w/pt: Yes Patient agreeable to treatment: Yes Plans for Post Hospital Care: Home (3) Chronic post-traumatic stress disorder Current visit: Yes Status: Acute Plan: Admit inpatient for safety and stabilization, Close observation, Suicide Precautions per unit protocol, Encourage participation in unit milieu, Group Therapy, Monitor sleep, Monitor appetite, Secure weapons, Family/Supportive other meeting Risks, benefits, side effects, alternatives discussed w/pt: Yes Patient agreeable to treatment: Yes Plans for Post Hospital Care: Home (4) Parasomnia of non-organic origin Current visit: No Status: Chronic Plan: Monitor sleep Risks, benefits, side effects, alternatives discussed w/pt: Yes Patient agreeable to treatment: Yes Plans for Post Hospital Care: Home
[2018-03-12] MEDS: *HR* LORazepam 1 MG TABLET PO PRN (15:50)
[2018-03-12] MEDS: ARIPiprazole 10 MG TABLET PO SCH (21:07)
[2018-03-12] MEDS: Divalproex (24 HR) 500 MG TABLET PO SCH (21:07)
[2018-03-13] MEDS: OXcarbazepine 150 MG TABLET PO SCH (08:03)
[2018-03-13] MEDS: *HR* LORazepam 1 MG TABLET PO PRN ×2 (12:58→20:10)
--- NOTE | 2018-03-13 14:50 | Psychiatry Progress Note ---
Date of Encounter: 03/13/18 Time of Encounter: 14:45 Subjective Interval history: ID the patient is a 27-year-old white male. Chief complaint I thought that there is a flash of light or that someone was laughing at me. History of present illness patient required when necessary medicines yesterday and today. Today is based on the believe that there might be something out or he might have heard someone talk about him he has intrusive thoughts about ripping off the signs and using them to cut harm himself or assaulting or harming staff member And in a private room so that he does not have a roommate. The patient was able to tolerate Depakote 1500 mg per day yesterday. He is only on his first day of this medicine. He feels that the when necessary medicines are helpful but he cannot tell that they are really working. Intrusive thoughts continue, and override his consciousness. He also misperceives some events in the environment. He can recognize this but at the time he has difficulty reacting to the period is tolerated the increase in Abilify. Review of Systems Psychiatric: Reports: depression, abnormal sleep pattern, suicidal ideation, homicidal ideation, other Results - Vital Signs Vital Signs: Temp Pulse Resp BP Pulse Ox 97.5 F L 80 18 114/60 98 03/13/18 08:59 03/13/18 08:59 03/13/18 08:59 03/13/18 08:59 03/13/18 08:59 Assessment and Plan (1) Bipolar disorder, current episode mixed, severe, without psychotic features Current visit: Yes Status: Acute Plan: Continue hospitalization, Close observation, Suicide Precautions per unit protocol, Encourage participation in unit milieu, Group Therapy Risks, benefits, side effects, alternatives discussed w/pt: Yes Patient agreeable to treatment: Yes (2) Homicidal ideation Current visit: Yes Status: Acute Plan: Continue hospitalization, Close observation, Suicide Precautions per unit protocol, Encourage participation in unit milieu Risks, benefits, side effects, alternatives discussed w/pt: Yes Patient agreeable to treatment: Yes (3) Chronic post-traumatic stress disorder Current visit: Yes Status: Acute Plan: Monitor sleep, Monitor appetite Risks, benefits, side effects, alternatives discussed w/pt: Yes Patient agreeable to treatment: Yes (4) Parasomnia of non-organic origin Current visit: No Status: Chronic Plan: Close observation, Monitor sleep, Monitor appetite Risks, benefits, side effects, alternatives discussed w/pt: Yes Patient agreeable to treatment: Yes Consult Discharge Plan - Plan Referrals: [facility] [Outside] - 05/01/18 8:40 am Psychiatry Exam - Constitutional Vitals: Temp Pulse Resp BP Pulse Ox 97.5 F L 80 18 114/60 98 03/13/18 08:59 03/13/18 08:59 03/13/18 08:59 03/13/18 08:59 03/13/18 08:59 General appearance: age & developmentally appropriate, well-groomed, well- nourished - Musculoskeletal Gait: other Station: stiff Strength & Tone: other - Psychiatric Patient Orientation: Yes Person, Yes Time, Yes Place Level of alertness: Alert Behavior: calm, cooperative Psychomotor activity: Normal Eye Contact: Maintains Eye Contact Mood Description: Depressed Affect description: congruent with mood, full range Speech Volume: Normal Speech pattern: normal rate, normal rhythm, normal tone, fluent, spontaneous Language & Vocabulary: consistent with education Thought Process: Linear, Goal Oriented Thought Content: Yes Homicidal ideation, No Overt delusions, Yes Jewish delusion, Yes Obsessive thoughts Perceptual Disturbances: No Auditory hallucinations, No Visual hallucinations Attention Span Ability: Capable of Focused Attention Memory Description: Grossly Intact Patient Reliability: Reliable Historian Fund of knowledge: Yes abstraction ability, Yes aware of current events Intelligence Estimate: Average Judgment: Fair Insight: Partial
[2018-03-13] MEDS: ARIPiprazole 10 MG TABLET PO SCH (20:09)
[2018-03-13] MEDS: Divalproex (24 HR) 500 MG TABLET PO SCH (20:10)
[2018-03-13] MEDS: Lithium Carbonate 300 MG CAPSULE PO SCH (20:10)
--- NOTE | 2018-03-14 15:59 | Psychiatry Progress Note ---
Date of Encounter: 03/14/18 Time of Encounter: 15:45 Subjective Interval history: D the patient is a 27-year-old white male. Chief complaint I am feeling better and was able to process some of the homicidal ideation History of present illness the patient has a friend who has some insight into his illness but has not been able to medicate that the teen. Nonetheless the patient has been able to tolerate Depakote he notes no significant tremor or nausea or headache." Blood level scheduled for tomorrow. The patient is interacting on the unit participating in groups. The patient is been off Zoloft and off Trileptal. Review of Systems Psychiatric: Reports: depression, abnormal sleep pattern, suicidal ideation, homicidal ideation, other Results - Vital Signs Vital Signs: Temp Pulse Resp BP Pulse Ox 97.8 F 78 16 113/78 97 03/14/18 08:45 03/14/18 08:45 03/14/18 08:45 03/14/18 08:45 03/14/18 08:45 Assessment and Plan (1) Bipolar disorder, current episode mixed, severe, without psychotic features Current visit: Yes Status: Acute Plan: Close observation, Suicide Precautions per unit protocol, Encourage participation in unit milieu, Group Therapy, Monitor sleep Risks, benefits, side effects, alternatives discussed w/pt: Yes Patient agreeable to treatment: Yes (2) Homicidal ideation Current visit: Yes Status: Acute Plan: Monitor sleep, Monitor appetite Risks, benefits, side effects, alternatives discussed w/pt: Yes Patient agreeable to treatment: Yes (3) Chronic post-traumatic stress disorder Current visit: Yes Status: Acute Plan: Continue hospitalization, Close observation, Monitor appetite Risks, benefits, side effects, alternatives discussed w/pt: Yes Patient agreeable to treatment: Yes (4) Parasomnia of non-organic origin Current visit: No Status: Chronic Plan: Continue hospitalization, Group Therapy, Monitor appetite Risks, benefits, side effects, alternatives discussed w/pt: Yes Patient agreeable to treatment: Yes Consult Discharge Plan - Plan Referrals: [facility] [Outside] - 05/01/18 8:40 am Psychiatry Exam - Constitutional Vitals: Temp Pulse Resp BP Pulse Ox 97.8 F 78 16 113/78 97 03/14/18 08:45 03/14/18 08:45 03/14/18 08:45 03/14/18 08:45 03/14/18 08:45 General appearance: age & developmentally appropriate, well-groomed, well- nourished - Musculoskeletal Gait: normal Station: shaky Strength & Tone: normal for patient - Psychiatric Patient Orientation: Yes Person, Yes Time, Yes Place Level of alertness: Alert Behavior: calm, cooperative Psychomotor activity: Normal Eye Contact: Maintains Eye Contact Mood Description: Depressed, Anxious Affect description: congruent with mood, full range Speech Volume: Normal Speech pattern: normal rate, normal rhythm, normal tone, fluent, spontaneous Language & Vocabulary: consistent with education Thought Process: Linear, Goal Oriented Thought Content: Yes Suicidal ideation, Yes Homicidal ideation, No Overt delusions, Yes Preoccupation Perceptual Disturbances: No Auditory hallucinations, No Visual hallucinations Attention Span Ability: Capable of Sustained Attention Memory Description: Grossly Intact Patient Reliability: Reliable Historian Fund of knowledge: Yes abstraction ability, Yes aware of current events Intelligence Estimate: Average Judgment: Fair Insight: Partial
[2018-03-14] MEDS: Lithium Carbonate 300 MG CAPSULE PO SCH (20:27)
[2018-03-14] MEDS: ARIPiprazole 10 MG TABLET PO SCH (20:27)
[2018-03-14] MEDS: Divalproex (24 HR) 500 MG TABLET PO SCH (20:27)
[2018-03-15] MEDS: hydrOXYzine pamoate 25 MG CAPSULE PO PRN (08:55)
[2018-03-15 09:02] LABS: Alanine Aminotransferase 14 Units/L (7-52); Albumin 4.8 g/dL (3.5-5.7); Albumin/Globulin Ratio 2.4 (1.1-2.2); Alkaline Phosphatase 54 Units/L (34-104); Aspartate Amino Transferase 15 Units/L (13-39); BUN/Creatinine Ratio 13 (6-26); Bilirubin,Indirect 0.3 mg/dL (0.0-1.2); Bilirubin,Total 0.3 mg/dL (0.3-1.0); Blood Urea Nitrogen 12 mg/dL (6-20); Calcium 9.8 mg/dL (8.6-10.3); Carbon Dioxide 27 mEq/L (23-29); Chloride 105 mEq/L (98-107); Glucose 117 mg/dL (70-105); Osmolality,Calculated 289 (280-300); Potassium 3.9 mEq/L (3.5-5.1); Sodium 139 mEq/L (136-145); Total Protein 6.8 g/dL (6.4-8.9); Valproate 60 mcg/mL (50-100); eGFR For Non-African Americans > 60 (> 60)
[2018-03-15 10:12] VITALS: BP 137/88
--- NOTE | 2018-03-15 13:00 | Discharge Summary ---
Date of Encounter: 03/15/18 Time of Encounter: 13:00 Diagnosis - Discharge Diagnosis (1) Bipolar disorder, current episode mixed, severe, without psychotic features Priority: Primary Status: Acute (2) Homicidal ideation Priority: Secondary Status: Resolved (3) Chronic post-traumatic stress disorder Status: Acute (4) Parasomnia of non-organic origin Status: Chronic Medications - Discharge Medications Prescriptions: ARIPiprazole [Abilify] 20 mg PO HS 30 Days #30 tablet Divalproex (24 HR) [Depakote ER (24 HR)] 1,500 mg PO HS 30 Days #90 tab.er.24h [place] Carbonate 300 mg PO DAILY 03/11/18 [History] Prazosin HCl [Minipress] 8 mg PO HS 03/11/18 [History] ARIPiprazole [Abilify] 20 mg PO HS 30 Days #30 tablet 03/15/18 [Rx] Acetaminophen [Tylenol] 650 mg PO Q6HR PRN tablet 03/15/18 [Rx] Divalproex (24 HR) [Depakote ER (24 HR)] 1,500 mg PO HS 30 Days #90 tab.er.24h 03/15/18 [Rx] Allergy/AdvReac Type Severity Reaction Status Date / Time No Known Allergies Allergy Verified 03/11/18 18:25 Results Procedures and tests throughout hospitalization: Completed Lab Orders Category Date Time Status Acetaminophen Stat Lab 03/11/18 15:17 Completed Basic Metabolic Panel Stat Lab 03/11/18 15:17 Completed Chem 7 [Basic Metabolic Panel] Routine Lab 03/15/18 08:27 Completed Complete Blood Count [HEME] Stat Lab 03/11/18 15:17 Completed Drug Screen, Urine [UCHEM] Stat Lab 03/11/18 15:04 Completed Ethanol Stat Lab 03/11/18 15:17 Completed Hepatic Panel Routine Lab 03/15/18 08:27 Completed [place] Routine Lab 03/15/18 08:27 Completed [place] Stat Lab 03/11/18 15:17 Completed Salicylate Stat Lab 03/11/18 15:17 Completed Urinalysis reflex Microscopic [URIN] Stat Lab 03/11/18 15:00 Completed Valproate Routine Lab 03/15/18 08:27 Completed Provider Date of admission: 03/11/18 18:53 Primary care physician: PCP NONE Discharging clinician: Callum Gerber Psychiatry Exam - Constitutional Vitals: Temp Pulse Resp BP Pulse Ox 98.2 F 91 18 137/88 97 03/15/18 10:11 03/15/18 10:11 03/15/18 10:11 03/15/18 10:11 03/15/18 10:11 General appearance: age & developmentally appropriate, well-groomed, well- nourished - Musculoskeletal Gait: normal Station: relaxed Strength & Tone: normal for patient - Psychiatric Patient Orientation: Yes Person, Yes Time, Yes Place Level of alertness: Alert Behavior: calm, cooperative Psychomotor activity: Normal Eye Contact: Maintains Eye Contact Mood Description: Euthymic/stable Affect description: congruent with mood, full range Speech Volume: Normal Speech pattern: normal rate, normal rhythm, normal tone, fluent, spontaneous Language & Vocabulary: consistent with education Thought Process: Linear, Goal Oriented Thought Content: No Suicidal ideation, No Homicidal ideation, No Overt delusions Perceptual Disturbances: No Auditory hallucinations, No Visual hallucinations Attention Span Ability: Capable of Focused Attention Memory Description: Grossly Intact Patient Reliability: Reliable Historian Fund of knowledge: Yes abstraction ability, Yes aware of current events Intelligence Estimate: Average Judgment: Fair Insight: Partial Hospital Course Hospital course: Mr. Moralez is a 27 year old male He improved with use of Depakote 1500 mg per day and low-dose lithium. Blood levels were 60 and 0.2 respectively. The patient tolerated without significant tremor or other side effects laboratory studies were within normal limits on nonfasting glucose was 117. Baseline TSH was within normal limits in December. BUN/creatinine were also normal. The patient stabilized with improved mood and reduce suicidal and homicidal ideation. And he will be discharged on these 2 medicines. The patient was able to taper off Trileptal and Zoloft during the hospital stay as it was felt that they were not helpful for mood stabilization and possibly inducing cycling, by report. The patient's Abilify was increased to 20 mg. He will return to his home with follow-up in [place] counselling - Time Spent with Patient Total time spent providing and/or coordinating discharge services: Less than 30 minutes Assessment and Plan - Patient/Caregiver Discharge Instructions Activity: resume usual activities as tolerated Diet: regular diet - Follow up Plan Follow up with: [facility] [Outside] - 05/01/18 8:40 am Functional capacity at discharge: independent ambulation Overall status at discharge: Stable Disposition: Home, Self-Care Quality - Multiple Antipsychotics Patient discharged on 2 or more antipsychotic medications: No Procedures - Procedures Procedures: Medication Management, Crisis Stabilization, Supportive Therapy, Group Therapy, Psychoeducational Therapy
== END 2018-03-15 14:25 | disposition home or self-care (01) | DRG 753 ==
LOC: EMEROOARM 14:51 → 1ANU 18:53
PROVIDERS: ADMIT Psychiatry & Neurology Forensic Psychiatry; ATTEND Psychiatry & Neurology Forensic Psychiatry